=== PATIENT | male | born 1960 | race African-American/Black ===

== ENCOUNTER 2016-06-22 12:21 | Emergency (ER) | payer OTHER ==
[~2016-06-22] VITALS: Ht 182.9 cm; Wt 114.0 kg
[~2016-06-22 12:21] MED LIST: ASPI81TA82 PO; BENZ100 PO; LOSA50TA PO; LOVA10TA PO; METF-324 PO; METO25 PO; NOVONP2 SQ; ZITH250T PO
[2016-06-22 12:31] VITALS: BP 123/93; PULSE 78; RESP 18; TEMP 98; O2SAT 97
[2016-06-22] MEDS ORDERED: METF1000 PO (12:46)
[2016-06-22] MEDS ORDERED: LOVA40TA PO (12:46)
[2016-06-22] MEDS ORDERED: GABA300C5 PO (12:46)
[2016-06-22] MEDS ORDERED: AMLO10TA2 PO (12:46)
[2016-06-22] MEDS ORDERED: GLIM1TAB PO (12:46)
--- NOTE | 2016-06-22 13:08 | PD ---
HPI Chief Complaint: Anxiety Time Seen by Provider: 12:56 Travel History International Travel<30 days: No Contact w/Intl Traveler<30days: No Traveled to known affect area: No History of Present Illness HPI This patient has history of anxiety troubles. He was stressing out about his medications today and noticed some chest pain. His chest pain consists of a 2 second long sharp pinching sensation in the left lower chest. It resolves spontaneously with no alleviating factors and 2 seconds. It is not exertional. He is pain-free now. No presyncopal symptoms. Duration one day. symptoms severity is mild PFSH Past Medical History Anxiety: Yes Cardiac Catheterization: Yes Cardiovascular Problems: Yes High Cholesterol: Yes Chest Pain: Yes Coronary Artery Disease: Yes (HX OF ANGINA) Diabetes: Yes Patient Takes Glucophage: Yes Diminished Hearing: No Endocrine: Yes Hypertension: Yes Implanted Vascular Access Dvce: Yes Psychiatric: Yes Tetanus Vaccination: < 5 Years Influenza Vaccination: No Past Surgical History Body Medical Devices: WIRES TO BOTH KNEES Other Surgery: Yes Social History Alcohol Use: No Tobacco Use: No Substance Use: No Allergies-Medications (Allergen,Severity, Reaction): Coded Allergies: Iodine (Verified Allergy, Severe, Swelling, 06/22/16) Seafood (Verified Allergy, Severe, Swelling, 06/22/16) Reported Meds & Prescriptions Reported Meds & Active Scripts Active Reported Gabapentin 300 Mg Cap 300 Mg PO TID Amlodipine (Amlodipine Besylate) 10 Mg Tab 10 Mg PO DAILY Lovastatin 40 Mg Tab 40 Mg PO DAILY Glimepiride 1 Mg Tab 1 Mg PO DAILY Take with breakfast or first main meal Metformin (Metformin HCl) 1,000 Mg Tab 1,000 Mg PO BIDPC With meals Review of Systems General / Constitutional: No: Fever HENT: No: Headaches Cardiovascular: Positive: Chest Pain or Discomfort Psychiatric: Positive: Anxiety Physical Exam Narrative GENERAL: Well-nourished, well-developed patient in no apparent distress. SKIN: Warm and dry. HEAD: Atraumatic. Normocephalic. EYES: Pupils equal and round. No scleral icterus. No injection or drainage. ENT: No nasal bleeding or discharge. Mucous membranes pink and moist. NECK: Trachea midline. No JVD. CARDIOVASCULAR: Regular rate and rhythm. No murmur appreciated. RESPIRATORY: No accessory muscle use. Clear to auscultation. Breath sounds equal bilaterally. GASTROINTESTINAL: Abdomen soft, non-tender, nondistended. Hepatic and splenic margins not palpable. MUSCULOSKELETAL: No obvious deformities. No clubbing. No cyanosis. No edema. NEUROLOGICAL: Awake and alert. No obvious cranial nerve deficits. Motor grossly within normal limits. Normal speech. PSYCHIATRIC: Appropriate mood and affect; insight and judgment normal. Data Data Last Documented VS Vital Signs Date Time Temp Pulse Resp B/P Pulse Ox O2 Delivery O2 Flow Rate FiO2 06/22/16 12:46 78 18 06/22/16 12:31 98.0 123/93 97 Orders Electrocardiogram (06/22/16 ) [facility] Medical Decision Making Medical Screen Exam Complete: Yes Emergency Medical Condition: Yes Medical Record Reviewed: Yes Differential Diagnosis Differential diagnosis includes CT, angina, pericarditis, pleurisy, GERD, anxiety. Narrative Course I have reviewed the patient's electronic medical record. Extended cardiac monitoring reveals sinus rhythm without ectopy Patient's exam is normal and symptoms have resolved His chest pain is clearly noncardiac in origin and will not require further inpatient evaluation He has a 2 second long pinching sensation that resolves on its own. I reviewed his EKG which shows no ST elevation Diagnosis Primary Impression: Atypical chest pain Additional Impression: Anxiety Additional Instructions: The patient was advised to follow up with their physician and return if they worsen. Med/Other Pt SpecificInfo: Other Disposition: 01 DISCHARGE HOME Condition: Stable Jovanni Kay MD Jun 22, 2016 13:08
--- NOTE | 2016-06-23 15:20 | EKG ---
Date Performed: 06/22/2016 Time Performed: 13:13:48 PTAGE: 55 years EKG: Sinus rhythm with prolonged 1st degree heart block Left axis deviation Poor R wave progression - probable normal variant Inferior/lateral ST-T changes are nonspecific Largely unchanged from prior tracing Abnormal E CG PREVIOUS TRACING : 08/19/2014 10.28 DOCTOR: Ender Mejia Interpretating Date/Time 06/23/2016 15:19:40
== END 2016-06-22 13:41 | disposition home or self-care (01) ==
LOC: PHED 12:21
DX: R07.89 Other chest pain (principal); E78.00 Pure hypercholesterolemia, unspecified; I25.10 Atherosclerotic heart disease of native coronary artery without angina pectoris; E11.9 Type 2 diabetes mellitus without complications; I10 Essential (primary) hypertension; I44.0 Atrioventricular block, first degree
CPT/HCPCS: 93005

== ENCOUNTER 2016-08-01 09:10 | Emergency (ER) | payer OTHER ==
[~2016-08-01] VITALS: Ht 182.9 cm; Wt 116.0 kg
[~2016-08-01 09:10] MED LIST changes: +AMLO10TA2 PO; -ASPI81TA82 PO; -BENZ100 PO; +GABA300C5 PO; +GLIM1TAB PO; -LOSA50TA PO; -LOVA10TA PO; +LOVA40TA PO; -METF-324 PO; +METF1000 PO; -METO25 PO; -NOVONP2 SQ; -ZITH250T PO
[2016-08-01 09:13] VITALS: BP 137/82; PULSE 59; RESP 17; TEMP 98.4; O2SAT 99
[2016-08-01] MEDS ORDERED: LIDOCAINE 1%/EPINEPHrine 1:100,000 SOLN 20 ML VIAL INFIL ONE (09:30)
[2016-08-01] MEDS ORDERED: TETANUS/DIPHTHERIA TOXOID ADULT 0.5 ML VIAL IM ONE (09:30)
[2016-08-01] MEDS ORDERED: SODIUM CHLORIDE 0.9% FLUSH 5 ML FLUSH IVF PRN (09:30)
[2016-08-01] MEDS ORDERED: CLINDAMYCIN INJ 900 MG in SODIUM CHLORIDE 0.9% INJ 100 ML IV ONE (09:30)
--- NOTE | 2016-08-01 09:30 | PD ---
HPI . Plantar puncture wound Chief Complaint: Laceration/Skin Injury Time Seen by Provider: 09:20 Travel History International Travel<30 days: No Contact w/Intl Traveler<30days: No Traveled to known affect area: No History of Present Illness HPI Patient presents with a plantar puncture wound. He stepped on a edward nail through his sock 2 days ago. He comes in today complaining with continued pain. No fever. Unknown date of last tetanus. PFSH Past Medical History Anxiety: Yes Cardiac Catheterization: Yes Cardiovascular Problems: Yes High Cholesterol: Yes Chest Pain: Yes Coronary Artery Disease: Yes (HX OF ANGINA) Diabetes: Yes Diminished Hearing: No Endocrine: Yes Hypertension: Yes Implanted Vascular Access Dvce: Yes Psychiatric: Yes Past Surgical History Body Medical Devices: WIRES TO BOTH KNEES Other Surgery: Yes Social History Alcohol Use: No Tobacco Use: No Substance Use: No Allergies-Medications (Allergen,Severity, Reaction): Coded Allergies: Iodine (Verified Allergy, Severe, Swelling, 08/01/16) Seafood (Verified Allergy, Severe, Swelling, 08/01/16) Reported Meds & Prescriptions Reported Meds & Active Scripts Active Reported Losartan (Losartan Potassium) 100 Mg Tab 100 Mg PO DAILY Aspirin 325 Mg Tab 325 Mg PO DAILY Novolin N Inj (Insulin Human NPH) 1,000 Unit/10 Ml Vial 40 Units SQ BID Gabapentin 300 Mg Cap 300 Mg PO BID Amlodipine (Amlodipine Besylate) 10 Mg Tab 10 Mg PO DAILY Lovastatin 40 Mg Tab 40 Mg PO DAILY Metformin (Metformin HCl) 1,000 Mg Tab 1,000 Mg PO BIDPC With meals Review of Systems Except as stated in HPI: all other systems reviewed are Neg General / Constitutional: No: Fever, Chills Skin: Positive Change in Pigmentation, Positive Other (pain and swelling on the plantar aspect of the right foot) Physical Exam Narrative GENERAL: Awake and alert and in no acute distress. SKIN: Warm and dry. Redness and swelling on the plantar aspect of the right midfoot. Is tender. I don't see any lymphangitis. CARDIOVASCULAR: Regular rate and rhythm. RESPIRATORY: No accessory muscle use. MUSCULOSKELETAL: No obvious deformities. No edema. NEUROLOGICAL: Awake and alert. No obvious cranial nerve deficits. Motor grossly within normal limits. Normal speech. PSYCHIATRIC: Appropriate mood and affect; insight and judgment normal. Data Data Last Documented VS Vital Signs Date Time Temp Pulse Resp B/P Pulse Ox O2 Delivery O2 Flow Rate FiO2 08/01/16 09:42 59 16 08/01/16 09:13 98.4 137/82 99 Orders Tetanus/Diphtheria Tox Adult (Tetanus/Di (08/01/16 09:30) Lidocai-Epi 1%-1:100,000 Inj (Xylocaine- (08/01/16 09:30) Sodium Chloride 0.9% Flush (Ns Flush) (08/01/16 09:30) Clindamycin Inj (Cleocin Inj) (08/01/16 09:30) MDM Medical Decision Making Medical Screen Exam Complete: Yes Emergency Medical Condition: Yes Differential Diagnosis Differential diagnosis of plantar puncture wound includes but is not limited to simple puncture, retained foreign body, cellulitis, abscess, bony injury Narrative Course Patient presents with a plantar puncture wound. He now has evidence of cellulitis. Have suggested to the patient that I explore the area to rule out a retained foreign body. In the meantime, he will be given a tetanus shot and a dose of IV Cleocin. Procedures Procedure Narrative Foreign body removal from a plantar puncture wound: Patient is allergic to iodine so the area was prepped with rubbing alcohol. It was then anesthetized with 4 cc of 1% lidocaine with epi. The puncture wound was cored out using a #11 blade. There was some retained fiber in the wound which was removed. The wound was then covered with a Band-Aid. Diagnosis Primary Impression: Cellulitis Qualified Code: L03.115 - Cellulitis of right lower extremity Additional Impressions: Puncture wound of plantar aspect of foot Qualified Code: S91.331A - Puncture wound of plantar aspect of foot, right, initial encounter Foreign body (FB) in soft tissue Patient Instructions: Cellulitis (ED), General Instructions Additional Instructions: Clean the wound twice daily with soap and water. Apply a thin layer of Neosporin ointment after you wash it. See your doctor in 2 days for recheck. Seek care sooner for increasing redness , drainage, warmth, unusual pain. Med/Other Pt SpecificInfo: Prescription(s) given Scripts Hydrocodone-Acetaminophen (Staples)5-325 mg Tab1-2 Tab PO Q6H PRN (PAIN) #12 TAB Ref 0 Prov:Michell Galdamez MD 08/01/16 Clindamycin (Cleocin)300 Mg Vol001 Mg PO Q8H #30 CAP Ref 0 Prov:Michell Galdamez MD 08/01/16 Disposition: 01 DISCHARGE HOME Condition: Stable Michell Galdamez MD Aug 01, 2016 09:30
[2016-08-01] MEDS ORDERED: NOVONP2 SQ (09:50)
[2016-08-01] MEDS ORDERED: ASPI325T PO (09:52)
[2016-08-01] MEDS ORDERED: LOSA100T PO (09:52)
[2016-08-01] MEDS ORDERED: CLEO300C2 PO (10:19)
[2016-08-01] MEDS ORDERED: NORC5TAB PO (10:19)
[2016-08-01 11:30] VITALS: BP 148/57
== END 2016-08-01 11:43 | disposition home or self-care (01) ==
LOC: PHED 09:10
DX: S91.341A Puncture wound with foreign body, right foot, initial encounter (principal); E78.00 Pure hypercholesterolemia, unspecified; I25.10 Atherosclerotic heart disease of native coronary artery without angina pectoris; E11.9 Type 2 diabetes mellitus without complications; I10 Essential (primary) hypertension; L03.115 Cellulitis of right lower limb; Z23 Encounter for immunization; W45.0XXA Nail entering through skin, initial encounter; Y99.8 Other external cause status
CPT/HCPCS: 28190; 90471; 90714; 96365

== ENCOUNTER 2017-01-25 18:58 | Inpatient (IN) | payer OTHER, MEDICARE ==
[~2017-01-25] VITALS: Ht 182.9 cm; Wt 117.0 kg
[~2017-01-25 18:58] MED LIST changes: +ASPI325T PO; +CLEO300C2 PO; -GLIM1TAB PO; +LOSA100T PO; +NORC5TAB PO; +NOVONP2 SQ
[2017-01-25 19:00] VITALS: BP 201/90; PULSE 51; RESP 20; TEMP 98.1; O2SAT 99
[2017-01-25 19:34] VITALS: BP 150/77; PULSE 53; RESP 18; TEMP 98.1; O2SAT 99
[2017-01-25 19:42] VITALS: BP_SYST 150; BP_SYST 167; BP_DIAS 77; BP_DIAS 79
[2017-01-25 19:50] LABS: AUTOMATED NEUTROPHIL # 4.7 TH/MM3 (1.8-7.7); BASOPHIL # 0.4 TH/MM3 (0-0.2); BASOPHIL % 3.7 % (0.0-2.0); EOSINOPHIL # 0.4 TH/MM3 (0-0.4); EOSINOPHIL % 3.5 % (0.0-4.0); HEMATOCRIT 39.1 % (39.0-51.0); LYMPH % 38.3 % (9.0-44.0); MEAN CELL VOLUME 70.1 FL (80.0-100.0); MEAN CORPUSCULAR HEMOGLOBIN 22.5 PG (27.0-34.0); MEAN CORPUSCULAR HGB CONC 32.2 % (32.0-36.0); MONO % 7.5 % (0.0-8.0); PLATELET COUNT 266 TH/MM3 (150-450); RED BLOOD COUNT 5.58 MIL/MM3 (4.50-5.90); RED CELL DISTRIBUTION WIDTH 13.3 % (11.6-17.2); WHITE BLOOD COUNT 10.3 TH/MM3 (4.0-11.0)
[2017-01-25 19:57] LABS: CHLORIDE 103 MEQ/L (98-107); POTASSIUM 3.8 MEQ/L (3.5-5.1); SODIUM (NA) 137 MEQ/L (136-145)
--- NOTE | 2017-01-25 19:59 | PD ---
HPI Chief Complaint: Cardiac Complaint Time Seen by Provider: 19:16 Travel History International Travel<30 days: No Contact w/Intl Traveler<30days: No Traveled to known affect area: No History of Present Illness HPI The patient is a 56-year-old male that had an EKG today, done routinely for a checkup at his doctor's office. His doctor is Dr. Cloud. The EKG showed a complete heart block which she has not had before. It also showed a bradycardia with ventricular rate of 44. The patient denies any shortness of breath, chest pain, syncopal or near syncopal spells. He denies any hemoptysis. He denies any fever. 10 years ago a piece of metal hit him in the chest near her bowels and this was removed but apparently the patient has not had any heart problems since. He does have a history of diabetes and hypertension and hyperlipidemia. He does not smoke. He saw a analytics lead in [facility] 2 or 3 years ago but has not seen him since. He cannot remember this analytics lead name. PFSH Past Medical History Anxiety: Yes Cardiac Catheterization: Yes Cardiovascular Problems: Yes High Cholesterol: Yes Chest Pain: Yes Coronary Artery Disease: No (HX OF ANGINA) Diabetes: Yes Patient Takes Glucophage: Yes Diminished Hearing: No Endocrine: Yes Gastrointestinal Disorders: No Hypertension: Yes Implanted Vascular Access Dvce: Yes Psychiatric: Yes Tetanus Vaccination: Unknown Influenza Vaccination: No Past Surgical History Body Medical Devices: WIRES TO BOTH KNEES Other Surgery: Yes (RIGHT HAND 4TH DIGIT) Social History Alcohol Use: No Tobacco Use: No Substance Use: No Allergies-Medications (Allergen,Severity, Reaction): Coded Allergies: Fish Containing Products (Unverified Allergy, Severe, Swelling, 01/25/17) iodine (Unverified Allergy, Severe, Swelling, 01/25/17) potassium iodide (Unverified Allergy, Severe, Swelling, 01/25/17) povidone-iodine (Unverified Allergy, Severe, Swelling, 01/25/17) sodium iodide (Unverified Allergy, Severe, Swelling, 01/25/17) sodium iodide (Unverified Allergy, Severe, Swelling, 01/25/17) Reported Meds & Prescriptions Reported Meds & Active Scripts Active Reported Losartan (Losartan Potassium) 100 Mg Tab 100 Mg PO DAILY Aspirin 325 Mg Tab 325 Mg PO DAILY Novolin N Inj (Insulin Human NPH) 1,000 Unit/10 Ml Vial 40 Units SQ BID Gabapentin 300 Mg Cap 300 Mg PO BID Amlodipine (Amlodipine Besylate) 10 Mg Tab 10 Mg PO DAILY Lovastatin 40 Mg Tab 40 Mg PO DAILY Metformin (Metformin HCl) 1,000 Mg Tab 1,000 Mg PO BIDPC With meals Review of Systems Except as stated in HPI: all other systems reviewed are Neg Physical Exam Narrative GENERAL: The patient is obese, alert, oriented 3 in no apparent distress. His vital signs show blood pressure 201/90 with heart rate of 51 but are otherwise normal. He does not appear in any respiratory distress. SKIN: Focused skin assessment warm/dry. HEAD: Atraumatic. Normocephalic. EYES: Pupils equal and round. No scleral icterus. No injection or drainage. ENT: No nasal bleeding or discharge. Mucous membranes pink and moist. NECK: Trachea midline. No JVD. CARDIOVASCULAR: Regular rate and rhythm. No murmur appreciated. RESPIRATORY: No accessory muscle use. Clear to auscultation. Breath sounds equal bilaterally. GASTROINTESTINAL: Abdomen soft, non-tender, nondistended. Hepatic and splenic margins not palpable. MUSCULOSKELETAL: No obvious deformities. No clubbing. No cyanosis. No edema. NEUROLOGICAL: Awake and alert. No obvious cranial nerve deficits. Motor grossly within normal limits. Normal speech. PSYCHIATRIC: Appropriate mood and affect; insight and judgment normal. Data Data Last Documented VS Vital Signs Date Time Temp Pulse Resp B/P Pulse Ox O2 Delivery O2 Flow Rate FiO2 01/25/17 19:42 150/77 167/79 01/25/17 19:34 53 18 99 Room Air 01/25/17 19:34 98.1 Orders Electrocardiogram (01/25/17 19:30) Ckmb (Isoenzyme) Profile (01/25/17 19:30) Complete Blood Count With Diff (01/25/17 19:30) Comprehensive Metabolic Panel (01/25/17 19:30) Magnesium (Mg) (01/25/17 19:30) Prothrombin Time / Inr (Pt) (01/25/17 19:30) Act Partial Throm Time (Ptt) (01/25/17 19:30) Troponin I (01/25/17 19:30) Ecg Monitoring (01/25/17 19:30) Bilateral Bp Monitoring (01/25/17 19:30) Iv Access Insert/Monitor (01/25/17 19:30) Oximetry (01/25/17 19:30) Oxygen Administration (01/25/17 19:30) Sodium Chloride 0.9% Flush (Ns Flush) (01/25/17 19:30) Chest, Pa & Lat (01/25/17 19:30) Admit Order (Ed Use Only) (01/25/17 19:44) CKMB (01/25/17 19:25) CKMB% (01/25/17 19:25) Labs Laboratory Tests Test 01/25/17:25 White Blood Count 10.3 TH/MM3 Red Blood Count 5.58 MIL/MM3 Hemoglobin 12.6 GM/DL Hematocrit 39.1 % Mean Corpuscular Volume 70.1 FL Mean Corpuscular Hemoglobin 22.5 PG Mean Corpuscular Hemoglobin 32.2 % Concent Red Cell Distribution Width 13.3 % Platelet Count 266 TH/MM3 Mean Platelet Volume 9.1 FL Neutrophils (%) (Auto) 47.0 % Lymphocytes (%) (Auto) 38.3 % Monocytes (%) (Auto) 7.5 % Eosinophils (%) (Auto) 3.5 % Basophils (%) (Auto) 3.7 % Neutrophils # (Auto) 4.7 TH/MM3 Lymphocytes # (Auto) 4.0 TH/MM3 Monocytes # (Auto) 0.8 TH/MM3 Eosinophils # (Auto) 0.4 TH/MM3 Basophils # (Auto) 0.4 TH/MM3 CBC Comment AUTO DIFF Differential Comment AUTO DIFF CONFIRMED Prothrombin Time 10.4 SEC Prothromb Time International 0.9 RATIO Ratio Activated Partial 25.2 SEC Thromboplast Time Sodium Level 137 MEQ/L Potassium Level 3.8 MEQ/L Chloride Level 103 MEQ/L Carbon Dioxide Level 26.1 MEQ/L Anion Gap 8 MEQ/L Blood Urea Nitrogen 20 MG/DL Creatinine 1.10 MG/DL Estimat Glomerular Filtration 83 ML/MIN Rate Random Glucose 241 MG/DL Calcium Level 9.0 MG/DL Magnesium Level 1.4 MG/DL Total Bilirubin 0.2 MG/DL Aspartate Amino Transf 26 U/L (AST/SGOT) Alanine Aminotransferase 26 U/L (ALT/SGPT) Alkaline Phosphatase 93 U/L Total Creatine Kinase 198 U/L Creatine Kinase MB 1.2 NG/ML Troponin I 0.14 NG/ML Total Protein 7.8 GM/DL Albumin 3.7 GM/DL MDM Medical Decision Making Medical Screen Exam Complete: Yes Emergency Medical Condition: Yes Medical Record Reviewed: Yes Interpretation(s) EKG shows a heart block with a ventricular rate of 51. No acute ST elevation or depression is noted. The coagulation profile is normal. The complete metabolic profile shows a BUN of 20, glucose 241, magnesium 1.4 but is otherwise unremarkable. The CK-MB is normal but the troponin I is 0.14. The CBC is normal except for hemoglobin of 12.6. Differential Diagnosis Complete heart block, cardiac syncope, electrolyte disorder, acute coronary syndrome Narrative Course The patient appears totally asymptomatic with this complete heart block. Physician Communication Physician Communication I discussed the patient with Dr. Nate Rosado and he wants to admit the patient to the CVICU at [facility]. Diagnosis Primary Impression: Complete heart block by electrocardiogram Additional Impressions: Elevated troponin I level Blood glucose elevated Admitting Information Admitting Physician Requests: Admit Reji Britton MD Jan 25, 2017 19:58
[2017-01-25 20:00] LABS: ANION GAP 8 MEQ/L (5-15); BICARBONATE 26.1 MEQ/L (21.0-32.0); MAGNESIUM 1.4 MG/DL (1.5-2.5)
[2017-01-25 20:01] LABS: BLOOD UREA NITROGEN 20 MG/DL (7-18)
[2017-01-25 20:02] LABS: APTT (PATIENT) 25.2 SEC (24.3-30.1); INTERNATIONAL NORMALIZED RATIO 0.9 RATIO; PROTHROMBIN TIME - PATIENT 10.4 SEC (9.8-11.6)
[2017-01-25 20:03] LABS: ALT (GPT) 26 U/L (12-78)
[2017-01-25 20:04] LABS: AST (GOT) 26 U/L (15-37); GLOMERULAR FILTRATION RATE 83 ML/MIN (>89)
[2017-01-25 20:05] LABS: HEMO FLAGS AUTO DIFF; TOTAL BILIRUBIN ADULT 0.2 MG/DL (0.2-1.0)
[2017-01-25 20:06] LABS: ALKALINE PHOSPHATASE 93 U/L (45-117); CREATINE KINASE 198 U/L (39-308)
--- NOTE | 2017-01-25 20:08 | RADRPT ---
EXAM DATE/TIME: 01/25/2017 19:42 [facility] COMPARISON: No previous studies available for comparison. INDICATIONS : Palpitations. MEDICAL HISTORY : Hypertension. Diabetes SURGICAL HISTORY : None. ENCOUNTER: Initial ACUITY: 1 day PAIN SCORE: 0/10 LOCATION: Bilateral chest FINDINGS: PA and lateral views of the chest demonstrate the lungs to be symmetrically aerated without evidence of mass, infiltrate or effusion. The cardiomediastinal contours are unremarkable. Osseous structure s are intact. CONCLUSION: No evidence of acute cardiopulmonary disease. Yoan Lindquist MD on January 25, 2017 at 20:06 Board Certified Radiologist. This report was verified electronically.
[2017-01-25 20:19] LABS: CKMB 1.2 NG/ML (0.5-3.6)
[2017-01-25 20:25] LABS: SCAN/DIFF AUTO DIFF CONFIRMED
[2017-01-25 20:29] VITALS: BP 159/81; PULSE 55; RESP 18; O2SAT 98
[2017-01-25 21:30] VITALS: BP 161/76; PULSE 51; RESP 18; O2SAT 97
[2017-01-25 22:35] VITALS: BP 167/74; PULSE 54; RESP 18; O2SAT 98
[2017-01-26] VITALS (17 sets, daily range): BP systolic 135–181; BP diastolic 76–96; PULSE 37–83; RESP 1–22; TEMP 98–98.8; O2SAT 95–98
[2017-01-26] MEDS ORDERED: ATROPINE SULFATE 1 MG/10 ML SYRINGE ONE (01:17)
[2017-01-26] MEDS ORDERED: CHLORHEXIDINE GLUCONATE 2 % 1 PACK (2 CLOTHS) TOP PRN (01:45)
[2017-01-26] MEDS ORDERED: ACETAMINOPHEN 325 MG TAB PO PRN (01:45)
[2017-01-26] MEDS ORDERED: hydrALAZINE HCL 20 MG/ML VIAL IV PUSH PRN (01:45)
[2017-01-26] MEDS ORDERED: DEXTROSE 50% IN WATER 50 ML VIAL(D50) IV PRN (01:45)
[2017-01-26] MEDS ORDERED: TEMAZEPAM 15 MG CAP PO PRN (01:45)
[2017-01-26] MEDS ORDERED: GLUCAGON 1 MG/ML VIAL OTHER PRN (01:45)
[2017-01-26] MEDS ORDERED: MISCELLANEOUS NURSING INFORMATION XX SCH (01:45)
[2017-01-26] MEDS ORDERED: ENOXAPARIN SODIUM 120 MG/0.8 ML SYRINGE SQ SCH (02:00)
[2017-01-26] MEDS ORDERED: ENALAPRILAT 1.25 MG/ML VIAL IV PUSH PRN (02:00)
--- NOTE | 2017-01-26 02:08 | HHI.HP ---
HPI Service Critical Care Medicine Primary Care Physician Non-Staff Admission Diagnosis Comlete heart block Diagnosis: Chief Complaint: None. Sent from PCP office for new heart block. Travel History International Travel<30 Days: No Contact w/Intl Traveler <30 Da: No Traveled to Known Affected Are: No History of Present Illness 56 y/o man observed to have complete heart block on ECG today in private physicians office. Sent to [place] ED and transferred to [facility] CVICU where I met him on his arrival. No chest pain, SOB, syncope, light-headedness. Electrolytes acceptable range. Mag 1.4. K 3.8. Trop 0.14. ECG with variable ventricular response in the 40s. SBP 160s. Dr. Rosado has reviewed and discussed with me plan of care. No specific possible causative medications. Patient has IDDM, hypertension, anxiety. Past Family Social History Allergies: Coded Allergies: Fish Containing Products (Unverified Allergy, Severe, Swelling, 01/25/17) iodine (Unverified Allergy, Severe, Swelling, 01/25/17) potassium iodide (Unverified Allergy, Severe, Swelling, 01/25/17) povidone-iodine (Unverified Allergy, Severe, Swelling, 01/25/17) sodium iodide (Unverified Allergy, Severe, Swelling, 01/25/17) sodium iodide (Unverified Allergy, Severe, Swelling, 01/25/17) Physical Exam Vital Signs Vital Signs Date Time Temp Pulse Resp B/P Pulse Ox O2 Delivery O2 Flow Rate FiO2 01/26/17 00:23 53 18 97 01/26/17 00:22 52 18 158/78 97 Room Air 01/25/17 22:35 54 18 167/74 98 Room Air 01/25/17 21:30 51 18 161/76 97 Room Air 01/25/17 20:29 55 18 159/81 98 Room Air 01/25/17 19:42 150/77 167/79 01/25/17 19:34 53 18 99 Room Air 01/25/17 19:34 99 Room Air 01/25/17 19:34 98.1 53 18 150/77 99 Room Air 01/25/17 19:34 99 Room Air 01/25/17 19:00 98.1 51 20 201/90 99 Physical Exam Gen: Alert, comfortable. Head: Normal. Neck: Supple, airway clear. Lungs: Clear, no adventitious sounds. Comfortable pattern. Heart: Irreg, Irreg, bradycardia 45 - 54. No M,r. No JVD. Abdomen: Benign, soft. Extremities: Warm, well perfused. Neuro: O X 3, alert, conversant. Moves 4 limbs. Laboratory Laboratory Tests Test 01/25/17 19:25 White Blood Count 10.3 Red Blood Count 5.58 Hemoglobin 12.6 Hematocrit 39.1 Mean Corpuscular Volume 70.1 Mean Corpuscular Hemoglobin 22.5 Mean Corpuscular Hemoglobin 32.2 Concent Red Cell Distribution Width 13.3 Platelet Count 266 Mean Platelet Volume 9.1 Neutrophils (%) (Auto) 47.0 Lymphocytes (%) (Auto) 38.3 Monocytes (%) (Auto) 7.5 Eosinophils (%) (Auto) 3.5 Basophils (%) (Auto) 3.7 Neutrophils # (Auto) 4.7 Lymphocytes # (Auto) 4.0 Monocytes # (Auto) 0.8 Eosinophils # (Auto) 0.4 Basophils # (Auto) 0.4 CBC Comment AUTO DIFF Differential Comment AUTO DIFF CONFIRMED Prothrombin Time 10.4 Prothromb Time International 0.9 Ratio Activated Partial 25.2 Thromboplast Time Sodium Level 137 Potassium Level 3.8 Chloride Level 103 Carbon Dioxide Level 26.1 Anion Gap 8 Blood Urea Nitrogen 20 Creatinine 1.10 Estimat Glomerular Filtration 83 Rate Random Glucose 241 Calcium Level 9.0 Magnesium Level 1.4 Total Bilirubin 0.2 Aspartate Amino Transf 26 (AST/SGOT) Alanine Aminotransferase 26 (ALT/SGPT) Alkaline Phosphatase 93 Total Creatine Kinase 198 Creatine Kinase MB 1.2 Troponin I 0.14 Total Protein 7.8 Albumin 3.7 Result Diagram: 01/25/17192401/25/171924 Imaging CXR: Clear Assessment and Plan Assessment and Plan Assessment: 1. Complete Heart Block, periodic atrial fibrillation with bradycardic response. 2. Hypertension. 3. DM, Type 2, poorly controlled (missed afternoon insulin today). 4. Hyperlipidemia. Plan: 1. Telemetry. 2. Bed rest, up with assistance. 3. Full anticoagulation. 4. Repeat Troponin. 5. Pepcid. 6. Q4h SSI until better glucose control. Hold NPH in case made NPO for possible procedure. 7. Atropine for sustained rate < 38. 8. Hydralazine for hypertension now. 9. Hold ARB. 10. No AV node conduction blockers for HTN. Overall impression: Warm and well perfused. Patient states he has a pulse in the 40s most of the time for many months, possibly years. I'll start full anticoagulation due to inconsistent upper chamber contraction. Adjust type per Cardiology Service. I talked with his at the bedside and explained our plans. Dr. Rosado will see in the morning. Randall Quintanilla MD Jan 26, 2017 02:08
[2017-01-26] MEDS ORDERED: ATROPINE SULFATE 1 MG/10 ML SYRINGE IV PUSH PRN (02:15)
[2017-01-26] MEDS ORDERED: amLODIPine BESYLATE 5 MG TAB PO ONE (02:15)
[2017-01-26] MEDS: metFORMIN HCL 500 MG TAB PO SCH ×3 (02:18→18:19)
[2017-01-26] MEDS: INSULIN ASPART SUPPLEMENTAL SCALE SQ SCH ×6 (02:19→21:43)
[2017-01-26] MEDS: CHLORHEXIDINE GLUCONATE 2 % 1 PACK (2 CLOTHS) TOP SCH (04:00)
[2017-01-26] MEDS: MAGNESIUM SULFATE 1 GM PREMIX 100 ML IV SCH ×2 (07:53→08:08)
[2017-01-26] MEDS: PRAVASTATIN SOD 40 MG TAB PO SCH (08:06)
[2017-01-26] MEDS: SODIUM CHLORIDE 0.9% FLUSH 10 ML FLUSH IVF PRN (08:06)
[2017-01-26] MEDS: FAMOTIDINE 20 MG TAB PO SCH ×2 (08:07→21:40)
[2017-01-26] MEDS: GABAPENTIN 300 MG CAP PO SCH ×2 (08:07→21:40)
[2017-01-26] MEDS: ASPIRIN 81 MG CHEW TAB CHEW SCH (08:08)
--- NOTE | 2017-01-26 14:45 | MB ---
cc: NATE CISNEROS DO DATE OF CONSULTATION January 26, 2017 REASON FOR CONSULTATION High degree AV block. HISTORY OF PRESENT ILLNESS Liam Hurtado is a pleasant 56-year-old male who presented to [facility] Emergency Room in [facility] at the request of his primary care physician due to concern for complete heart block. He was seeing his primary care physician yesterday and while in the office had an EKG done. He was called later in the day by his primary care physician while he was in the grocery store and told him that he should get to the emergency room immediately. On arrival to the emergency room an electrocardiogram was done which appears to be probable high degree AV block. At that time he was transferred to [facility] for further observation and decision on what should be done. In speaking to him he is currently hemodynamically stable without chest pain, shortness of breath or palpitations. He states that he has had a low heart rate for sometime but never known to have AV block. Of note, he had a Holter monitor on August 19, 2014 and it was noted that he had first degree AV block with occasional second-degree probable type 2 AV block. PAST MEDICAL HISTORY 1. Anxiety. 2. Hyperlipidemia. 3. Diabetes. 4. Hypertension. PAST SURGICAL HISTORY 1. Cardiac catheterization (February 15, 2006) left main normal, LAD has mild luminal irregularities. Left circumflex small vessel with mild luminal irregularities. RCA medium size vessel with mild luminal irregularities. 2. Bilateral reconstructive knee surgery. 3. States that he had surgery for removal of shrapnel removed from his chest but unable to further describe exactly what this was. ALLERGIES 1. IODINE. 2. POTASSIUM IODIDE. MEDICATIONS 1. Losartan 100 milligrams daily. 2. Gabapentin 300 milligrams b.i.d. 3. Metformin 1000 milligrams b.i.d. 4. Norvasc 10 milligrams daily. 5. Lovastatin 40 milligrams daily. 6. Novolin 40 units subcu b.i.d. 7. Aspirin 325 milligrams daily. FAMILY HISTORY Denies premature coronary artery disease or sudden cardiac within the family. SOCIAL HISTORY Denies alcohol, tobacco or drug abuse. REVIEW OF SYSTEMS 14-systems were reviewed including osteopathic. Pertinent positives and negatives above, otherwise negative. PHYSICAL EXAMINATION VITAL SIGNS: Temperature 98.2, heart rate 50, blood pressure 153/84, respirations 16, pulse ox 95% on room air. GENERAL: In general the patient appears well in no acute distress, alert awake and oriented x3. HEENT: Extraocular muscles intact. Mucous membranes moist. NECK: Supple. No JVD at 45 degrees. No carotid bruits heard bilaterally. Carotid upstroke is brisk in nature. HEART: Heart is bradycardic but regular. Positive first and second heart sounds with no noted murmurs, gallops or rubs. LUNGS: Clear to auscultation bilaterally. No wheezes, rales or rhonchi. ABDOMEN: Soft, nontender, nondistended. No organomegaly noted. EXTREMITIES: Show no clubbing, cyanosis or edema. Femoral and distal pulses intact bilaterally. NEUROLOGICALLY: No focal deficits. OSTEOPATHIC. No kyphoscoliosis, lordosis or paraspinal tender points. LABORATORY DATA Hemoglobin 12.6, hematocrit 39.1, platelets 266. Potassium 3.8, BUN 20, creatinine 1.1, magnesium 1.4, troponin 0.14. CARDIOLOGY STUDIES Electrocardiogram (January 26, 2017 at 05:42) AV dissociation most likely complete heart block or at least high degree heart block. ST-T wave changes inferolaterally possibly due to ischemia. IMPRESSION 1. AV dissociation most likely complete heart block versus high degree AV block for which the patient is currently asymptomatic. 2. History of first degree AV block with possible second-degree type 2 AV block. 3. Hypertension. 4. Diabetes mellitus. 5. History of cardiac catheterization (February 15, 2006) with minimal coronary artery disease. 6. Mildly elevated troponin. 7. Hypomagnesemia. RECOMMENDATIONS 1. Mr. Hurtado appears to have had at least high degree AV block if not complete heart block but is currently hemodynamically stable without symptoms. He will be watched in the CVICU from that standpoint. Overnight he has been mostly sinus rhythm with occasional episodes of dropped beats. 2. Because of the mildly elevated troponin as well as some EKG changes I feel that it is reasonable that he undergo cardiac catheterization to rule out significant coronary artery disease as a possible cause for his AV heart block. 3. Postprocedure he will meet with EP cardiology for further considerations of pacemaker therapy. At this time him and his are somewhat hesitant about the pacemaker unless it is absolutely necessary which I did describe to him that most likely it would be. 4. We will change of Lovenox to heparin in anticipation of his cardiac catheterization on Saturday. 5. Will check a 2-D echo to look at his overall left ventricular function, cardiac structure and possible valvulopathies. 6. Further recommendations will be made based on the hospital course. Thank you for allowing me to see Liam Hurtado. If there are any questions please do not hesitate to call. Nate Cisneros DO VGP/EO /1:38 PM /2:28 PM
--- NOTE | 2017-01-26 15:12 | EKG ---
Date Performed: 01/25/2017 Time Performed: 19:10:27 PTAGE: 56 years EKG: SINUS BRADYCARDIA WITH FIRST-DEGREE AV BLOCK WITH HI INTERVAL OF .34. NONSPECIFIC T-WAVE CH CARLOS BORDERLINE LEFT AXIS DEVIATION Since previous tracing, no significant change noted ABNORMAL RHYT ECG PREVIOUS TRACING : 06/22/2016 13.13 DOCTOR: Catracho Oconnor Interpretating Date/Time 01/26/2017 15:10:54
--- NOTE | 2017-01-26 15:19 | EKG ---
Date Performed: 01/26/2017 Time Performed: 05:42:18 PTAGE: 56 years EKG: There is a Sinus rhythm that is irregular with some AV conduction with a prolonged VA interval and at other times there is n o AV conduction with a probable junctional escape rhythm. Rate is variable, averaging 42. There is no evidence that this is AV Wenkebach. VA interval of that conducts appears to be at .40-.44. Nonspecif ic T-wave changes [place] borderline leftward Compared to previous tracing, there is now variable sinus rhythm with some conducted beats, and some what appears to be escape junctional beats at a slower rat e. This represents fairly advanced AV block. Clinical correlation recommended. Abnormal ECG PREVIOUS TRACING : 01/25/2017 19.10 DOCTOR: Catracho Oconnor Interpretating Date/Time 01/26/2017 15:18:43
[2017-01-26 15:45] LABS: HEMATOCRIT 36.3 % (39.0-51.0); MEAN CELL VOLUME 70.5 FL (80.0-100.0); MEAN CORPUSCULAR HEMOGLOBIN 22.6 PG (27.0-34.0); PLATELET COUNT 239 TH/MM3 (150-450); RED BLOOD COUNT 5.14 MIL/MM3 (4.50-5.90); RED CELL DISTRIBUTION WIDTH 14.3 % (11.6-17.2); REVIEW FLAG FINAL; WHITE BLOOD COUNT 8.2 TH/MM3 (4.0-11.0)
[2017-01-26 15:54] LABS: APTT (PATIENT) 27.3 SEC (24.3-30.1); PROTHROMBIN TIME - PATIENT 10.9 SEC (9.8-11.6)
[2017-01-26] MEDS: HEPARIN-D5W 25,000 U/250 ML 250 ML IV SCH (15:57)
[2017-01-26 15:59] LABS: BICARBONATE 26.9 MEQ/L (21.0-32.0); MAGNESIUM 1.8 MG/DL (1.5-2.5); POTASSIUM 3.9 MEQ/L (3.5-5.1)
[2017-01-26] MEDS ORDERED: HEPARIN SODIUM - IV 10,000 UNITS/10 ML VIAL IV PRN ×2 (20:00)
[2017-01-26 22:45] LABS: APTT (PATIENT) 28.7 SEC (24.3-30.1)
[2017-01-27] VITALS (7 sets, daily range): BP systolic 145–159; BP diastolic 72–98; PULSE 38–82; RESP 14–22; TEMP 98.2–98.4; O2SAT 95–98
[2017-01-27] MEDS: INSULIN ASPART SUPPLEMENTAL SCALE SQ SCH ×6 (01:45→21:45)
[2017-01-27 02:54] LABS: HEMATOCRIT 37.3 % (39.0-51.0); MEAN CELL VOLUME 69.8 FL (80.0-100.0); MEAN CORPUSCULAR HEMOGLOBIN 22.4 PG (27.0-34.0); PLATELET COUNT 232 TH/MM3 (150-450); RED BLOOD COUNT 5.34 MIL/MM3 (4.50-5.90); RED CELL DISTRIBUTION WIDTH 14.1 % (11.6-17.2); REVIEW FLAG FINAL; WHITE BLOOD COUNT 9.9 TH/MM3 (4.0-11.0)
[2017-01-27 03:03] LABS: BICARBONATE 26.2 MEQ/L (21.0-32.0); MAGNESIUM 1.6 MG/DL (1.5-2.5); POTASSIUM 3.6 MEQ/L (3.5-5.1)
[2017-01-27 03:13] LABS: APTT (PATIENT) 39.7 SEC (24.3-30.1)
[2017-01-27] MEDS: CHLORHEXIDINE GLUCONATE 2 % 1 PACK (2 CLOTHS) TOP SCH (04:00)
--- NOTE | 2017-01-27 06:18 | HHI.CCPN ---
Subjective Remarks/Hospital Course 56 y/o man observed to have complete heart block on ECG today in private physicians office. Sent to [place] [facility] and [place] [facility] where I met him on his arrival. No chest pain, SOB, syncope, light-headedness. Electrolytes acceptable range. Mag 1.4. K 3.8. Trop 0.14. ECG with variable ventricular response in the 40s. SBP 160s. Dr. Rosado has reviewed and discussed with me plan of care. No specific possible causative medications. Patient has IDDM, hypertension, anxiety. Objective Vital Signs Date Time Temp Pulse Resp B/P Pulse Ox O2 Delivery O2 Flow Rate FiO2 01/27/17 03:00 98.4 82 18 145/82 95 01/26/17 21:05 21 01/26/17 00:22 Room Air Intake and Output 01/26/17 01/26/17 01/27/17 08:00 16:00 00:00 Intake Total 480 ml 1020 ml Output Total 600 ml 580 ml Balance -120 ml 440 ml Result Diagram: 01/27/1721001/27/17210 Imaging CXR: Clear Objective Remarks Gen: Alert, comfortable. Head: Normal. Neck: Supple, airway clear. Lungs: Clear, no adventitious sounds. Comfortable pattern. Heart: Irreg, Irreg, bradycardia 45 - 54. No M,r. No JVD. Abdomen: Benign, soft. Extremities: Warm, well perfused. Neuro: O X 3, alert, conversant. Moves 4 limbs. A/P Assessment and Plan Assessment: 1. Complete Heart Block, periodic atrial fibrillation with bradycardic response. 2. Hypertension. 3. DM, Type 2, poorly controlled (missed afternoon insulin today). 4. Hyperlipidemia. Plan: 1. Telemetry. 2. Bed rest, up with assistance. 3. Full anticoagulation. 4. Repeat Troponin. 5. Pepcid. 6. Q4h SSI until better glucose control. Hold NPH in case made NPO for possible procedure. 7. Atropine for sustained rate < 38. 8. Hydralazine for hypertension now. 9. Hold ARB. 10. No AV node conduction blockers for HTN. Overall impression: Warm and well perfused. Patient states he has a pulse in the 40s most of the time for many months, possibly years. I'll start full anticoagulation due to inconsistent upper chamber contraction. Adjust type per Cardiology Service. I talked with his at the bedside and explained our plans. Dr. Rosado will see in the morning. Ashley Pimentel MD Jan 27, 2017 06:18
--- NOTE | 2017-01-27 07:41 | HHI.CCPN ---
Subjective Remarks/Hospital Course 56 y/o man observed to have complete heart block on ECG today in private physicians office. Sent to [place] ED and transferred [place] [facility] where I met him on his arrival. No chest pain, SOB, syncope, light-headedness. Electrolytes acceptable range. Mag 1.4. K 3.8. Trop 0.14. ECG with variable ventricular response in the 40s. SBP 160s. Dr. Rosado has reviewed and discussed with me plan of care. No specific possible causative medications. Patient has IDDM, hypertension, anxiety. Subjective: 01/27: Afebrile. Patient up most of the night patient anxious regarding impending procedure cardiac catheter and pacemaker that he related to me. The patient is tolerating a diet. Heart rate ranges throughout the last 24 hours 41 82. The patient was noted to have a magnesium level I.6 which will be replaced today. Plan for cardiac catheterization and possible pacemaker implantation tomorrow. Objective Vital Signs Date Time Temp Pulse Resp B/P Pulse Ox O2 Delivery O2 Flow Rate FiO2 01/27/17 03:00 98.4 82 18 145/82 95 01/26/17 21:05 21 01/26/17 00:22 Room Air Intake and Output 01/26/17 01/26/17 01/26/17 07:59 15:59 23:59 Intake Total 480 ml 1020 ml Output Total 600 ml 580 ml Balance -120 ml 440 ml Result Diagram: 01/27/1721001/27/17210 Imaging Last Impressions Chest X-Ray 01/25/17 1930 Signed Impressions: Service Date/Time: Wednesday, January 25, 2017 19:42 - CONCLUSION: No evidence of acute cardiopulmonary disease. Yoan Lindquist MD CXR: Clear Objective Remarks Gen: Alert, comfortable. Head: Normal. Neck: Supple, airway clear. Lungs: Clear, no adventitious sounds. Comfortable pattern. Heart: Irreg, Irreg, bradycardia 45 - 67. No murmurs rubs or gallops No JVD. Abdomen: Benign, soft. Normoactive bowel sounds Extremities: Warm, well perfused. No edema no cyanosis Neuro: O X 3, alert, conversant. Follows commands, moves extremities 4. A/P Assessment and Plan Assessment: 1. Complete Heart Block, periodic atrial fibrillation with bradycardic response. 2. Hypertension. 3. DM, Type 2, poorly controlled (missed afternoon insulin today). 4. Hyperlipidemia. Plan: 1. Telemetry. 2. Bed rest, up with assistance. 3. Full anticoagulation. 4. Repeat Troponin. 5. Pepcid. 6. Q4h SSI until better glucose control. Hold NPH in case made NPO for possible procedure. 7. Atropine for sustained rate < 38. 8. Hydralazine for hypertension 9. Hold ARB. 10. No AV node conduction blockers for HTN. 11. Heparin infusion 1200 units currently-management per cardiology Dispo. Level 3 Overall impression: Warm and well perfused. Patient states he has a pulse in the 40s most of the time for many months, possibly years. I'll start full anticoagulation due to inconsistent upper chamber contraction. Plan for cardiac catheterization in the morning all questions answered. Physician Ashley Eid MD Jan 27, 2017 07:41
[2017-01-27] MEDS ORDERED: POTASSIUM PHOSPHATE MONOBASIC 500 MG TAB PO/TUBE PRN (07:45)
[2017-01-27] MEDS ORDERED: SODIUM PHOSPHATE INJ 30 MMOL in SODIUM CHLOR 0.9% 250 ML INJ 240 ML IV PRN (07:45)
[2017-01-27] MEDS ORDERED: MAGNESIUM SULFATE INJ 4 GM in SODIUM CHLORIDE 0.9% INJ 92 ML IV PRN (07:45)
[2017-01-27] MEDS ORDERED: POTASSIUM CHLOR 20 MEQ PREMIX 100 ML IV PRN ×2 (07:45)
[2017-01-27] MEDS ORDERED: POTASSIUM CHLORIDE 25 MEQ EFFERVESCENT TAB PO PRN (07:45)
[2017-01-27] MEDS ORDERED: MAGNESIUM SULFATE INJ 2 GM in SODIUM CHLORIDE 0.9% INJ 96 ML IV PRN (07:45)
[2017-01-27] MEDS ORDERED: MAGNESIUM OXIDE 400 MG TAB PO PRN (07:45)
[2017-01-27] MEDS ORDERED: POTASSIUM PHOSPHATE MONOBASIC 500 MG TAB PO PRN (07:45)
[2017-01-27] MEDS ORDERED: POTASSIUM PHOSPHATE INJ 30 MMOL in SODIUM CHLOR 0.9% 250 ML INJ 250 ML IV PRN (07:45)
[2017-01-27] MEDS ORDERED: POTASSIUM CHLOR 40 MEQ PREMIX 100 ML IV PRN ×2 (07:45)
[2017-01-27] MEDS: PRAVASTATIN SOD 40 MG TAB PO SCH (09:00)
[2017-01-27] MEDS: ASPIRIN 81 MG CHEW TAB CHEW SCH (09:00)
[2017-01-27] MEDS: GABAPENTIN 300 MG CAP PO SCH ×2 (09:00→21:52)
[2017-01-27] MEDS: FAMOTIDINE 20 MG TAB PO SCH ×2 (09:00→21:52)
[2017-01-27 12:13] LABS: APTT (PATIENT) 38.3 SEC (24.3-30.1)
--- NOTE | 2017-01-27 14:15 | ECHRPT ---
Indication: COMPLETE HEART BLOCK CONCLUSIONS The left ventricular systolic function is normal with an estimated ejection fraction in the range of 60-65%. Moderate concentric left ventricular hypertrophy. No regional wall motion abnormalities are present. There is mild to moderate tricuspid valve regurgitation. The estimated pulmonary arterial pressure is 52 mmHg. There is estimated moderate pulmonary hypertension present (range 50-60 mmHg). BP: / HR: Rhythm: Other MEASUREMENTS (Male / Female) Normal Values Technical Quality:Technically difficult study 2D ECHO LV Diastolic Diameter PLAX 4.9 cm 4.2 - 5.9 / 3.9 - 5.3 cm LV Systolic Diameter PLAX 3.2 cm IVS Diastolic Thickness 1.6 cm 0.6 - 1.0 / 0.6 - 0.9 cm LVPW Diastolic Thickness 1.6 cm 0.6 - 1.0 / 0.6 - 0.9 cm LV Relative Wall Thickness 0.6 RV Internal Dim ED PLAX 2.2 cm LVOT Diameter 1.9 cm LA Systolic Diameter LX 4.0 cm 3.0 - 4.0 / 2.7 - 3.8 cm M-MODE Aortic Root Diameter MM 3.3 cm AV Cusp Separation MM 2.4 cm DOPPLER AV Peak Velocity 136.0 cm/s AV Peak Gradient 7.4 mmHg LVOT Peak Velocity 95.8 cm/s LVOT Peak Gradient 3.7 mmHg AV Area Cont Eq pk 2.0 cm MV Area PHT 3.9 cm Mitral E Point Velocity 86.4 cm/s Mitral A Point Velocity 93.3 cm/s Mitral E to A Ratio 0.9 TR Peak Velocity 294.5 cm/s TR Peak Gradient 34.7 mmHg PV Peak Velocity 113.0 cm/s PV Peak Gradient 5.1 mmHg FINDINGS LEFT VENTRICLE The left ventricular systolic function is normal with an estimated ejection fraction in the range of 60-65%. Moderate concentric left ventricular hypertrophy. No regional wall motion abnormalities are present. RIGHT VENTRICLE Normal right ventricular size and systolic function. LEFT ATRIUM The left atrial size is normal. RIGHT ATRIUM The right atrial size is normal. ATRIAL SEPTUM Normal atrial septal thickness without atrial level shunting by limited color doppler interrogation. AORTA The aortic root and proximal ascending aorta are normal in size on limited imaging. MITRAL VALVE Structurally normal mitral valve. No mitral valve stenosis or regurgitation. AORTIC VALVE Trileaflet aortic valve. No aortic valve stenosis or regurgitation. TRICUSPID VALVE There is estimated moderate pulmonary hypertension present (range 50-60 mmHg). There is mild to moderate tricuspid valve regurgitation. The estimated pulmonary arterial pressure is 52 mmHg. PULMONARY VALVE The pulmonary valve is not well visualized. VESSELS The inferior vena cava is normal in size. PERICARDIUM No pericardial effusion. Jonh Martins MD (Electronically Signed) Final Date:27 January 2017 14:15
--- NOTE | 2017-01-27 14:30 | PD.CARD.PN ---
Subjective Subjective Remarks Patient seen this morning No complaints Telemetry showing sinus rhythm with occasional av dissociation Objective Medications Current Medications Medications (Trade) Dose Ordered Sig/Juju Route Start Time Stop Time Status Last Admin (NS Flush) 2 ml UNSCH PRN IVF 01/25/17 19:30 01/26/17 08:06 (Tylenol) 650 mg Q6H PRN PO 01/26/17 01:45 (Pepcid) 20 mg Q12HR PO 01/26/17 09:00 01/26/17 21:40 (Restoril) 15 mg HS PRN PO 01/26/17 01:45 Miscellaneous Information 1 Q361D XX 01/26/17 01:45 01/26/17 01:45 (Chlorhexidine 2% Cloth) 3 pack Taper DAILY@04 TOP 01/26/17 04:00 01/22/18 03:59 01/27/17 04:00 (Chlorhexidine 2% Cloth) 3 pack UNSCH PRN TOP 01/26/17 01:45 (D50w (Vial) Inj) 50 ml UNSCH PRN IV 01/26/17 01:45 (Glucagon Inj) 1 mg UNSCH PRN OTHER 01/26/17 01:45 (NovoLOG SUPPLEMENTAL SCALE) 1 Q4H SQ 01/26/17 01:45 01/26/17 21:43 (Apresoline Inj) 20 mg Q2H PRN IV PUSH 01/26/17 01:45 (Aspirin Chew) 81 mg DAILY CHEW 01/26/17 09:00 01/26/17 08:08 (Vasotec Inj) 2.5 mg Q6H PRN IV PUSH 01/26/17 02:00 (Atropine Inj) 1 mg UNSCH PRN IV PUSH 01/26/17 02:15 (Neurontin) 300 mg BID PO 01/26/17 09:00 01/26/17 21:40 (Pravachol) 40 mg DAILY PO 01/26/17 09:00 01/26/17 08:06 (Glucophage) 1,000 mg BIDPC PO 01/26/17 02:15 01/26/17 18:19 (Heparin Inj) 5,000 units UNSCH PRN IV 01/26/17 20:00 (Heparin Inj) 2,500 units UNSCH PRN IV 01/26/17 20:00 Heparin Sodium/ Dextrose 250 ml @ 0 mls/hr TITRATE IV 01/26/17 14:00 01/26/17 15:57 Potassium Chloride 100 ml @ 50 mls/hr Q2H PRN IV 01/27/17 07:45 Potassium Chloride 100 ml @ 50 mls/hr Q2H PRN IV 01/27/17 07:45 (K-Lyte Cl Eff) 50 meq UNSCH PRN PO 01/27/17 07:45 Potassium Chloride 100 ml @ 25 mls/hr UNSCH PRN IV 01/27/17 07:45 Potassium Chloride 100 ml @ 50 mls/hr Q2H PRN IV 01/27/17 07:45 Magnesium Sulfate 4 gm/Sodium Chloride 100 ml @ 50 mls/hr UNSCH PRN IV 01/27/17 07:45 (Mag-Ox) 800 mg UNSCH PRN PO 01/27/17 07:45 Magnesium Sulfate 2 gm/Sodium Chloride 100 ml @ 50 mls/hr UNSCH PRN IV 01/27/17 07:45 (K-Phos) 2,000 mg Q4H PRN PO 01/27/17 07:45 Sodium Phosphate 30 mmol/Sodium Chloride 250 ml @ 42 mls/hr UNSCH PRN IV 01/27/17 07:45 (K-Phos) 2,000 mg UNSCH PRN PO/TUBE 01/27/17 07:45 Potassium Phosphate 30 mmol/ Sodium Chloride 260 ml @ 42 mls/hr UNSCH PRN IV 01/27/17 07:45 Vital Signs / I&O Vital Signs Date Time Temp Pulse Resp B/P (MAP) Pulse Ox O2 Delivery O2 Flow Rate FiO2 01/27/17 03:00 98.4 82 18 145/82 (103) 95 01/27/17 03:00 82 01/26/17 23:00 50 01/26/17 23:00 98.6 50 18 146/77 (100) 97 01/26/17 21:05 98 21 01/26/17 19:00 98.8 43 22 166/91 (116) 96 01/26/17 19:00 43 01/26/17 15:00 40 01/26/17 15:00 98.0 40 16 135/76 (95) 96 I/O 01/26/17 01/26/17 01/26/17 01/27/17 01/27/1720/17 07:00 15:00 23:00 07:00 15:00 23:00 Intake Total 480 ml 1020 ml 616 ml Output Total 600 ml 580 ml 850 ml Balance -120 ml 440 ml -234 ml Intake Oral 480 ml 800 ml 480 ml IV Total 220 ml 136 ml Output Urine Total 600 ml 580 ml 850 ml # Bowel Movements 1 1 0 Physical Exam GENERAL: NAD, AAOx3 SKIN: Warm and dry. HEAD: Atraumatic. Normocephalic. EYES: Pupils equal and round. No scleral icterus. No injection or drainage. ENT: No nasal bleeding or discharge. Mucous membranes pink and moist. NECK: Trachea midline. No JVD. CARDIOVASCULAR: Regular rate and rhythm. Mildly bradycardic RESPIRATORY: No accessory muscle use. Clear to auscultation. Breath sounds equal bilaterally. GASTROINTESTINAL: Abdomen soft, non-tender, nondistended. Hepatic and splenic margins not palpable. MUSCULOSKELETAL: Extremities without clubbing, cyanosis, or edema. No obvious deformities. NEUROLOGICAL: Awake and alert. No obvious cranial nerve deficits. Motor grossly within normal limits. Five out of 5 muscle strength in the arms and legs. Normal speech. PSYCHIATRIC: Appropriate mood and affect; insight and judgment normal. Laboratory Laboratory Tests Test 01/26/17 14:32 01/26/17 22:14 01/27/17 02:11 01/27/17 09:36 White Blood Count 8.2 TH/MM3 9.9 TH/MM3 Red Blood Count 5.14 MIL/MM3 5.34 MIL/MM3 Hemoglobin 11.6 GM/DL 11.9 GM/DL Hematocrit 36.3 % 37.3 % Mean Corpuscular Volume 70.5 FL 69.8 FL Mean Corpuscular Hemoglobin 22.6 PG 22.4 PG Mean Corpuscular Hemoglobin Concent 32.0 % 32.0 % Red Cell Distribution Width 14.3 % 14.1 % Platelet Count 239 TH/MM3 232 TH/MM3 Mean Platelet Volume 9.1 FL 8.8 FL Prothrombin Time 10.9 SEC Prothromb Time International Ratio 1.0 RATIO Activated Partial Thromboplast Time 27.3 SEC 28.7 SEC 39.7 SEC Blood Urea Nitrogen 15 MG/DL 13 MG/DL Creatinine 0.97 MG/DL 0.97 MG/DL Random Glucose 149 MG/DL 130 MG/DL Calcium Level 8.8 MG/DL 8.5 MG/DL Phosphorus Level 2.5 MG/DL 3.5 MG/DL 2.3 MG/DL Magnesium Level 1.8 MG/DL 1.6 MG/DL Sodium Level 138 MEQ/L 141 MEQ/L Potassium Level 3.9 MEQ/L 3.6 MEQ/L Chloride Level 104 MEQ/L 105 MEQ/L Carbon Dioxide Level 26.9 MEQ/L 26.2 MEQ/L Anion Gap 7 MEQ/L 10 MEQ/L Estimat Glomerular Filtration Rate 96 ML/MIN 96 ML/MIN Test 01/27/17 11:42 Activated Partial Thromboplast Time 38.3 SEC Assessment and Plan Problem List: (1) Elevated troponin I level ICD Codes: R74.8 - Abnormal levels of other serum enzymes Status: Acute (2) Complete heart block by electrocardiogram ICD Codes: I44.2 - Atrioventricular block, complete Status: Acute (3) Blood glucose elevated ICD Codes: R73.9 - Hyperglycemia, unspecified Status: Acute Assessment and Plan 1) High degree AV block, possible AV dissociation with complete heart block at times 2) Plan catheterization to look for possible coronary cause, also with elevated troponins NPO after midnight Metformin on hold Iodine allergy, plan Solumedrol/Pepcid/Benadryl occupational therapy assistant to the tender labor 3) Depending on the results, will most likely need PPM Discussed case with Dr. Holguin, will see tomorrow with a plan for PPM on Saturday 4) Electrolyte replacement Nate Rosado DO Jan 27, 2017 14:30
[2017-01-27 19:15] LABS: APTT (PATIENT) 48.9 SEC (24.3-30.1)
[2017-01-28 02:20] LABS: HEMATOCRIT 38.3 % (39.0-51.0); MEAN CELL VOLUME 70.3 FL (80.0-100.0); MEAN CORPUSCULAR HGB CONC 31.3 % (32.0-36.0); PLATELET COUNT 257 TH/MM3 (150-450); RED BLOOD COUNT 5.45 MIL/MM3 (4.50-5.90); RED CELL DISTRIBUTION WIDTH 14.2 % (11.6-17.2); REVIEW FLAG FINAL; WHITE BLOOD COUNT 9.4 TH/MM3 (4.0-11.0)
[2017-01-28 02:32] LABS: APTT (PATIENT) 51.3 SEC (24.3-30.1)
[2017-01-28 02:39] LABS: BICARBONATE 25.7 MEQ/L (21.0-32.0); MAGNESIUM 1.9 MG/DL (1.5-2.5); POTASSIUM 4.2 MEQ/L (3.5-5.1)
[2017-01-28 02:49] LABS: PROTHROMBIN TIME - PATIENT 11.1 SEC (9.8-11.6)
[2017-01-28 03:00] VITALS: BP 121/60; PULSE 35; RESP 22; TEMP 98.2; O2SAT 94
[2017-01-28] MEDS: CHLORHEXIDINE GLUCONATE 2 % 1 PACK (2 CLOTHS) TOP SCH (04:00)
[2017-01-28] MEDS: HEPARIN-D5W 25,000 U/250 ML 250 ML IV SCH (05:50)
[2017-01-28 07:00] VITALS: BP 164/90; PULSE 43; PULSE 50; RESP 18; TEMP 98.2; O2SAT 16; O2SAT 96
[2017-01-28] MEDS ORDERED: FAMOTIDINE 20 MG/2 ML VIAL IV PUSH ONE (09:00)
[2017-01-28] MEDS: FAMOTIDINE 20 MG TAB PO SCH ×2 (09:00→20:59)
[2017-01-28] MEDS: ASPIRIN 81 MG CHEW TAB CHEW SCH (09:00)
[2017-01-28] MEDS: GABAPENTIN 300 MG CAP PO SCH ×2 (09:00→20:59)
[2017-01-28] MEDS ORDERED: diphenhydrAMINE HCL 50 MG/ML VIAL IM ONE (09:00)
[2017-01-28] MEDS: PRAVASTATIN SOD 40 MG TAB PO SCH (09:00)
[2017-01-28] MEDS ORDERED: methylPREDNISolone SOD SUCC 125 MG/2 ML VIAL IV PUSH ONE (09:00)
[2017-01-28] MEDS ORDERED: VERAPAMIL HCL 5 MG/2 ML VIAL ONE (09:40)
[2017-01-28] MEDS ORDERED: HEPARIN-NS/PF INJ 1,000 ML ONE (09:40)
[2017-01-28] MEDS ORDERED: NITROGLYCERIN INJ 5 ML ONE (09:40)
[2017-01-28] MEDS ORDERED: MIDAZOLAM HCL 2 MG/2 ML VIAL ONE (09:41)
[2017-01-28] MEDS ORDERED: HEPARIN SODIUM - IV 10,000 UNITS/10 ML VIAL ONE (09:41)
[2017-01-28] MEDS: INSULIN ASPART SUPPLEMENTAL SCALE SQ SCH ×4 (09:45→23:46)
[2017-01-28] MEDS ORDERED: methylPREDNISolone SOD SUCC 125 MG/2 ML VIAL ONE (09:51)
[2017-01-28] MEDS ORDERED: diphenhydrAMINE HCL 50 MG/ML VIAL ONE (09:51)
--- NOTE | 2017-01-28 10:47 | CATHPROC ---
Prixing HIS Report Study Information Study Number Admission Scheduled Start Study Start [id number] Jan 25 2017 7:49PM 01/27/2017 Jan 28 2017 9:38AM [place] Service Cardiac Catheterization Admit Source Facility Department Emergency department [facility] - Tube Cleaning Operator Physician and Clinical Staff Initial Nate Barber Video Control Engineer Skye FrederickBSRN Video Control Engineer Alfred Parker,LENO Recorder Lana Ortiz,(R) (BS) Scrub Gopi Goodwin RCIS(BS) Procedures Performed Procedure Location (Site) Vessel Name Coronary Angiograms LCA Left Coronary Coronary Angiograms RCA Right Coronary L Heart Cath Wire insertion Radial (right) Radial Art. Equipment Time Jack Strip Assembler Description Size Mfg Part Number Used/Scraped TRANSDUCER, TRUWAVE [id number] 10:09 Exergyn SMITH * Used W/STOCKCOCK *[id number] *[id number] *[id number] 10:09 [employer] PACK, CCL CUSTOM * Used *[id number] 10:09 [employer] SUPPORT, ARTERIAL ADULT [id number] *[id number] Used BAND, RADIAL COMPRESSION TR [id number] 10:34 [employer] MEDICAL 24CM Used SHORT 24 *[id number] 10:09 [employer] WIRE, EXCHANGE 260CM 3MMJ 260CM Used *[id number] 10:09 NAMIC MANIFOLD, 4 PORT * Used *[id number] 10:09 [employer]ED OMNIPAQUE, 350 MG, 150ML 150ML [id number] Used [id number] 10:09 [facility] BLANKET,WARM AIR CCL * Used *[id number] SHEATH, FR6 TRANSRADIAL RM*[id number] 10:09 [employer]ire FR 6 Used SLENDER 10CM *[id number] History: Current Medications Medication Dosage/Unit Route Frequency Last Date/Time Taken ASA LOVENOX History: Allergies Allergy Reaction Fish Containing Products Swelling potassium iodide Swelling sodium iodide Swelling iodine Swelling povidone-iodine Swelling History: Risk Factors Family History of Hypertension Dyslipidemia Previous ME Previous Heart Failure Premature CAD Yes Yes Yes No No Prior Valve Prior PCI Prior CABG Surgery No No No Cerebrovascular Peripheral Artery Chronic Lung On Dialysis Diabetes Diabetes Therapy Disease Disease Disease No No No No Yes Oral History: Stress Tests Stress or Imaging Studies Performed No History: Other Current Smoker Method Quit Packs a Day Years Used Pack Years No Cigarettes 20 Years Ago 1 6 6 Labs Hgb (g/dl) Hct (%) WBC (l/cumm) Platelets (thousands) 11.60-17.00 35.00-51.00 4.00-11.00 150.00-450.00 12.0 38.3 9.4 257 Glucose (mg/dl) BUN (mg/dl) Creatinine (mg/dl) BUN:Creatinine (1:x) 74.00-106.00 7.00-18.00 0.50-1.30 10.00-20.00 190 13 1.0 13 Na (meq/l) K (meq/l) 136.00-145.00 3.50-5.10 138 4.2 INR (PTT:PT) 0.90-1.10 1 Troponin I (ng/ml) CPK-MB (ng/ML) 0.02-0.05 0.50-3.60 0.14 Not Drawn Medication Medication Total Dose (Bolus/Oral) Medication Total Dosage/Unit 1% XYLOCAINE 1 mL BENADRYL 25 mg FENTANYL 25 mcg PEPCID 20 mg RADIAL COCKTAIL 1 units SOLU-MEDROL 125 mg VERSED 0.5 mg Medications (Bolus/Oral) Medication Time Given Dosage/Unit Administered By Reason BENADRYL 01/28/2017 9:54:33 AM 25 mg Rittenour, Skye 25 mg BENADRYL given in lab by Skye Frederick BSRN in Left Antecubital via Peripheral IV. SOLU-MEDROL 01/28/2017 9:55:37 AM 125 mg Alfred Parker 125 mg SOLU-MEDROL given in lab by Alfred Parker RN in Left Antecubital via Peripheral IV. PEPCID 01/28/2017 9:56:54 AM 20 mg Rittenour, Skye 20 mg PEPCID given in lab by Skye Frederick BSRN in Left Antecubital via Peripheral IV. VERSED 01/28/2017 10:14:55 AM 0.5 mg Rittenour, Skye 0.5 mg VERSED given in lab by Skye Frederick BSRN in Left Antecubital via Peripheral IV. FENTANYL 01/28/2017 10:15:14 AM 25 mcg Rittenour, Skye 25 mcg FENTANYL given in lab by Skye Frederick BSRN in Left Antecubital via Peripheral IV. 1% XYLOCAINE 01/28/2017 10:15:46 AM 1 mL Nate Rosado 1 mL 1% XYLOCAINE given in lab by Nate Rosado in Right Radial via Subcutaneous. Ntg 200mcg Verapamil 2.5mg Heparin RADIAL COCKTAIL 01/28/2017 10:16:58 AM 1 units Nate Rosado 2000U 1 units RADIAL COCKTAIL given in lab by Nate Rosado in Right Radial via Radial. Reason: Ntg 200 mcg Heparin 4500U. Medication (Drip) Medication Time Given Dosage/Unit Concentration/Unit Diluent (ml) Solution HEPARIN DRIP STOPPED 01/28/2017 9:45:00 AM 0 units/hr 0 0 units/hr HEPARIN DRIP STOPPED given in lab by Skye Frederick BSRN via Peripheral IV. Pump/Drip F low = 0 ml/hr using [Solution Name]. IV Solutions 01/28/2017 9:51:15 AM 0 mL (IV) 500 NaCl .9 IV Solutions given in lab by Skye Frederick BSRN in Left Antecubital via Peripheral IV. Pump/Drip Flow = 100 ml/hr using NaCl .9. Initial Case Assessment Cardiovascular HR Rhythm NIBP Chest Pain 53 irr 190/113 0 Edema Present Skin color Skin None Normal Warm Dry Circulatory - Right Pulses Dorsalis Pedis Femoral 2 2 Scale (0,1,2,3,4,d) Circulatory - Left Pulses Dorsalis Pedis Femoral 2 2 Scale (0,1,2,3,4,d) Circulatory - Lower Extremities Color Lower Right Color Lower Left Normal Normal Neurological State Oriented to time-place- Alert Moves all extremities person Respiration - General Respiration Rate SpO2 (%) (B/min) 9 100 Chronological Log Time Study Chronological Log 0 units/hr HEPARIN DRIP STOPPED given in lab by Skye Frederick BSRN via Peripheral IV. Pump/ Drip Flow = 0 ml/hr 9:45:00 using [Solution Name]. 9:50:43 Patient arrived via Bed. 9:50:44 Patient Name, D.O.B, / Armband Verified By R.N. 9:50:44 Consent signed by the physician and the patient and verified by the Tube Cleaning Operator staff. 9:50:45 Pre-op and post- op instructions given; patient acknowledges understanding of instructions. 9:50:46 Verbal Stimulation=2 Physical Stimulation=2 Airway=2 Respiration=2 TOTAL=8. (0=absent, 1=li mited, 2=present) 9:50:48 Presedation assessment performed by Tube Cleaning Operator RN. 9:51:06 Allens test performed on the right radial and ulnar artery. 9:51:09 Patient has been NPO for More than 6Hrs. 9:51:10 Skin Breakdown none per pt 9:51:11 Patient Warmer Placed on the Table. 9:51:13 Carolee Prominences Protected 9:51:14 A # 20 IV was noted in the Antecubital (left). Grade = 0 IV Solutions given in lab by Skye Frederick BSRN in Left Antecubital via Peripheral IV. Pump /Drip Flow = 100 ml/hr 9:51:15 using NaCl .9. 9:51:17 History and physical on the chart or being dictated. Assessment: Initial Case, HR=53 BPM, Rhythm=irr, TCWA=346/113 mmhg, Chest Pain=0, Edema=None, Color=Normal, Skin = Warm, Dry Right Pulses: Bridger Ped=2, Femoral=2 Left Pulses: Bridger Ped=2, Femoral=2 9:51:19 Lower Right Extremities: Color=Normal Lower Left Extremities: Color=Normal Neurological: State=Alert, Ox3, MACDONALD Respiration: Resp=9 B/min, QqP1=090 % 9:51:22 A # 20 IV was noted in the Forearm (right). Grade = 0 9:54:33 25 mg BENADRYL given in lab by Skye Frederick BSRN in Left Antecubital via Peripheral IV. 9:55:37 125 mg SOLU-MEDROL given in lab by Alfred Parker, LENO in Left Antecubital via Peripheral IV. 9:56:54 20 mg PEPCID given in lab by Skye Frederick BSRN in Left Antecubital via Peripheral IV. Vitals capture started with the following parameters, Patient=Adult, Interval=5 min, Initial Pr tewthd=826 mmHg, 9:58:26 Deflation Rate=5 mmHg, Cuff placed on Left Leg 9:59:39 HR=46 bpm, KUKP=447/113 mmhg, HvC0=818.0 %, Pain=0, Baldomero=10, Carrillo=2 10:04:10 HR=52 bpm, BDEM=855/96 mmhg, PsN7=813.0 %, Resp=1 B/min, Pain=0, Baldomero=10, Carrillo=2 10:04:58 Right Radial and right groin prepped with 2% chlorhexidine, and with a 3 min. waiting time. 10:09:13 HR=53 bpm, COFY=631/101 mmhg, ShA2=661.0 %, Resp=20 B/min, Pain=0, Baldomero=10, Carrillo=2 10:09:41 Reference ECG taken Time Out. Correct patient, correct procedure,correct physician, power injector not loaded with contrast with surgical 10:13:43 team present. Time Out Concurred by , individual staff in procedure 10:14:08 Case Start 10:14:12 HR=51 bpm, TJJU=155/94 mmhg, SpO2=99.0 %, Resp=20 B/min, Pain=0, Baldomero=10, Carrillo=2 10:14:55 0.5 mg VERSED given in lab by Skye Frederick BSRN in Left Antecubital via Peripheral IV. 10:15:14 25 mcg FENTANYL given in lab by Skye Frederick BSRN in Left Antecubital via Peripheral I V. 10:15:46 1 mL 1% XYLOCAINE given in lab by Nate Rosado in Right Radial via Subcutaneous. 10:16:29 Access site was right Radial Artery. A SHEATH, FR6 TRANSRADIAL SLENDER 10CM FR 6 was advanced into the Radial (right) using the Perc utaneous 10:16:45 technique. 1 units RADIAL COCKTAIL given in lab by Nate Rosado in Right Radial via Radial. Reason: N tg 200mcg Heparin 10:16:58 4500U. 10:18:03 Pressure channel 1 zeroed. A JR 4.0 INFINITI CATHETER FR 5 was advanced over a wire. OMNIPAQUE, 350 MG, 150ML 150ML was us ed for 10:18:23 injections. 10:19:09 HR=53 bpm, HJBT=010/98 mmhg, SpO2=98.0 %, Resp=21 B/min, Pain=0, Baldomero=10, Carrillo=2 Recorded Pressure: LV, HR=48, Condition=Condition 1 10:19:59 (Left Ventricle) LV 132/0/7 Recorded Pressure: LV, Ao, HR=55, Condition=Condition 1 10:20:17 (Left Ventricle) LV 135/1/7, (Aorta) Ao 139/81/105 10:20:42 The RCA was injected and visualized at various angles. OMNIPAQUE, 350 MG, 150ML 150ML used . Recorded Pressure: Ao, HR=57, Condition=Condition 1 10:21:18 (Aorta) Ao 142/88/111 After removing the current catheter a JL 3.5 INFINITI CATHETER FR 5 was advanced over a WIRE, E XCHANGE 260CM 10:21:29 3MMJ 260CM. 10:22:40 The LCA was injected and visualized at various angles. OMNIPAQUE, 350 MG, 150ML 150ML used . 10:24:37 HR=48 bpm, YLAW=292/87 mmhg, SpO2=96.0 %, Resp=18 B/min, Pain=0, Baldomero=10, Carrillo=2 10:28:14 A WIRE, EXCHANGE 260CM 3MMJ 260CM was inserted via Radial (right). 10:28:28 Catheter was removed 10:29:44 HR=47 bpm, TJYV=813/95 mmhg, SpO2=97.0 %, Resp=20 B/min, Pain=0, Baldomero=10, Carrillo=2 10:30:14 Case End 10:31:59 CVICU called. Spoke to Lilian. Radial Compression Device Used. 8 mLs of air placed in BAND, RADIAL COMPRESSION TR SHORT 24 24 CM. Affected 10:32:26 hand 95 % O2 saturation. 10:34:15 Vitals capture stopped. 10:34:46 No case complications noted. 10:34:47 Cine recording checked. 10:34:50 Bedside Report will be given. 10:34:54 Contrast Scanned 10:34:56 A Left Heart Cath was performed. 10:38:20 Patient moved to stretcher End Study - Contrast Media Used In Study Contrast Total Opened (mL) Total Used (mL) Total Wasted (mL) Omnipaque 45 45 0 End Study - Maximum Contrast Load Max Contrast Load (mL) 582.5 End Study - Radiation Exposure Fluoro Time (minutes) 2.4 End Study - Sheaths Sheaths Pulled By Sheath Hold Time (min) Nate Rosado End Study - Patient Disposition Complications Transferred To Interventional Outcome No Critical Care Bed No attempt made
[2017-01-28 11:00] VITALS: BP 149/76; PULSE 44; RESP 16; TEMP 98; O2SAT 94
[2017-01-28] MEDS ORDERED: MISC INFORMATION XX ONE (11:00)
[2017-01-28] MEDS ORDERED: IOHEXOL 350 MG/ML 50 ML BTL (for Cath Lab) OTHER ONE (13:10)
[2017-01-28 15:00] VITALS: BP 157/76; PULSE 50; RESP 14; TEMP 98.5; O2SAT 95
--- NOTE | 2017-01-28 17:10 | PD.CARD.PN ---
Subjective Subjective Remarks Post-cath doing well No complaints Objective Medications Current Medications Medications (Trade) Dose Ordered Sig/Juju Route Start Time Stop Time Status Last Admin (NS Flush) 2 ml UNSCH PRN IVF 01/25/17 19:30 01/26/17 08:06 (Tylenol) 650 mg Q6H PRN PO 01/26/17 01:45 (Pepcid) 20 mg Q12HR PO 01/26/17 09:00 01/27/17 21:52 (Restoril) 15 mg HS PRN PO 01/26/17 01:45 Miscellaneous Information 1 Q361D XX 01/26/17 01:45 01/26/17 01:45 (Chlorhexidine 2% Cloth) 3 pack Taper DAILY@04 TOP 01/26/17 04:00 01/22/18 03:59 01/27/17 04:00 (Chlorhexidine 2% Cloth) 3 pack UNSCH PRN TOP 01/26/17 01:45 (D50w (Vial) Inj) 50 ml UNSCH PRN IV 01/26/17 01:45 (Glucagon Inj) 1 mg UNSCH PRN OTHER 01/26/17 01:45 (NovoLOG SUPPLEMENTAL SCALE) 1 Q4H SQ 01/26/17 01:45 01/28/17 14:45 (Apresoline Inj) 20 mg Q2H PRN IV PUSH 01/26/17 01:45 (Aspirin Chew) 81 mg DAILY CHEW 01/26/17 09:00 01/27/17 09:00 (Vasotec Inj) 2.5 mg Q6H PRN IV PUSH 01/26/17 02:00 (Atropine Inj) 1 mg UNSCH PRN IV PUSH 01/26/17 02:15 (Neurontin) 300 mg BID PO 01/26/17 09:00 01/27/17 21:52 (Pravachol) 40 mg DAILY PO 01/26/17 09:00 01/27/17 09:00 (Glucophage) 1,000 mg BIDPC PO 01/26/17 02:15 Future hold 01/26/17 18:19 Potassium Chloride 100 ml @ 50 mls/hr Q2H PRN IV 01/27/17 07:45 Potassium Chloride 100 ml @ 50 mls/hr Q2H PRN IV 01/27/17 07:45 (K-Lyte Cl Eff) 50 meq UNSCH PRN PO 01/27/17 07:45 01/27/17 16:26 Potassium Chloride 100 ml @ 25 mls/hr UNSCH PRN IV 01/27/17 07:45 Potassium Chloride 100 ml @ 50 mls/hr Q2H PRN IV 01/27/17 07:45 Magnesium Sulfate 4 gm/Sodium Chloride 100 ml @ 50 mls/hr UNSCH PRN IV 01/27/17 07:45 (Mag-Ox) 800 mg UNSCH PRN PO 01/27/17 07:45 Magnesium Sulfate 2 gm/Sodium Chloride 100 ml @ 50 mls/hr UNSCH PRN IV 01/27/17 07:45 (K-Phos) 2,000 mg Q4H PRN PO 01/27/17 07:45 Sodium Phosphate 30 mmol/Sodium Chloride 250 ml @ 42 mls/hr UNSCH PRN IV 01/27/17 07:45 (K-Phos) 2,000 mg UNSCH PRN PO/TUBE 01/27/17 07:45 Potassium Phosphate 30 mmol/ Sodium Chloride 260 ml @ 42 mls/hr UNSCH PRN IV 01/27/17 07:45 Vital Signs / I&O Vital Signs Date Time Temp Pulse Resp B/P (MAP) Pulse Ox O2 Delivery O2 Flow Rate FiO2 01/28/17 07:23 21 01/28/17 07:00 43 01/28/17 07:00 98.2 50 18 164/90 (114) 16 01/28/17 03:00 98.2 35 22 121/60 (80) 94 01/28/17 03:00 35 01/27/17 23:00 98.3 49 18 148/72 (97) 97 01/27/17 23:00 49 01/27/17 20:05 98 21 01/27/17 19:00 45 01/27/17 19:00 98.4 45 22 154/76 (102) 98 I/O 01/27/17 01/27/17 01/27/17 01/28/17 01/28/17 01/28/17 07:00 15:00 23:00 07:00 15:00 23:00 Intake Total 616 ml 1015 ml 570 ml 42.2 ml Output Total 850 ml 850 ml 400 ml Balance -234 ml 165 ml 170 ml 42.2 ml Intake Oral 480 ml 720 ml 440 ml IV Total 136 ml 295 ml 130 ml 42.2 ml Output Urine Total 850 ml 850 ml 400 ml # Bowel Movements 0 0 0 Physical Exam GENERAL: NAD, AAOx3 SKIN: Warm and dry. HEAD: Atraumatic. Normocephalic. EYES: Pupils equal and round. No scleral icterus. No injection or drainage. ENT: No nasal bleeding or discharge. Mucous membranes pink and moist. NECK: Trachea midline. No JVD. CARDIOVASCULAR: Regular rate and rhythm. Mildly bradycardic RESPIRATORY: No accessory muscle use. Clear to auscultation. Breath sounds equal bilaterally. GASTROINTESTINAL: Abdomen soft, non-tender, nondistended. Hepatic and splenic margins not palpable. MUSCULOSKELETAL: Extremities without clubbing, cyanosis, or edema. No obvious deformities. NEUROLOGICAL: Awake and alert. No obvious cranial nerve deficits. Motor grossly within normal limits. Five out of 5 muscle strength in the arms and legs. Normal speech. PSYCHIATRIC: Appropriate mood and affect; insight and judgment normal. Laboratory Laboratory Tests Test 01/27/17 18:41 01/28/17 02:12 Activated Partial Thromboplast Time 48.9 SEC 51.3 SEC White Blood Count 9.4 TH/MM3 Red Blood Count 5.45 MIL/MM3 Hemoglobin 12.0 GM/DL Hematocrit 38.3 % Mean Corpuscular Volume 70.3 FL Mean Corpuscular Hemoglobin 22.0 PG Mean Corpuscular Hemoglobin Concent 31.3 % Red Cell Distribution Width 14.2 % Platelet Count 257 TH/MM3 Mean Platelet Volume 7.9 FL Prothrombin Time 11.1 SEC Prothromb Time International Ratio 1.0 RATIO Blood Urea Nitrogen 13 MG/DL Creatinine 1.04 MG/DL Random Glucose 190 MG/DL Calcium Level 8.7 MG/DL Phosphorus Level 3.0 MG/DL Magnesium Level 1.9 MG/DL Sodium Level 138 MEQ/L Potassium Level 4.2 MEQ/L Chloride Level 105 MEQ/L Carbon Dioxide Level 25.7 MEQ/L Anion Gap 7 MEQ/L Estimat Glomerular Filtration Rate 89 ML/MIN Assessment and Plan Problem List: (1) Elevated troponin I level ICD Codes: R74.8 - Abnormal levels of other serum enzymes Status: Acute (2) Complete heart block by electrocardiogram ICD Codes: I44.2 - Atrioventricular block, complete Status: Acute (3) Blood glucose elevated ICD Codes: R73.9 - Hyperglycemia, unspecified Status: Acute Assessment and Plan 1) High degree AV block, possible AV dissociation with complete heart block at times 2) No significant CAD noted on cath Metformin on hold 3) Dr. Holguin to see the patient for consideration of PPM 4) CVICU for now Concern for 3rd degree HB with rates around 38-42, although overall stable Nate Rosado DO Jan 28, 2017 17:10
[2017-01-28 19:00] VITALS: BP 166/87; PULSE 68; RESP 20; TEMP 98.4; O2SAT 96
--- NOTE | 2017-01-28 19:31 | HHI.CCPN ---
Subjective Remarks/Hospital Course 56 y/o man observed to have complete heart block on ECG today in private physicians office. Sent to [place] ED and transferred to [facility] where I met him on his arrival. No chest pain, SOB, syncope, light-headedness. Electrolytes acceptable range. Mag 1.4. K 3.8. Trop 0.14. ECG with variable ventricular response in the 40s. SBP 160s. Dr. Rosado has reviewed and discussed with me plan of care. No specific possible causative medications. Patient has IDDM, hypertension, anxiety. Subjective: 01/27: Afebrile. Patient up most of the night patient anxious regarding impending procedure cardiac catheter and pacemaker that he related to me. The patient is tolerating a diet. Heart rate ranges throughout the last 24 hours 41 82. The patient was noted to have a magnesium level I.6 which will be replaced today. Plan for cardiac catheterization and possible pacemaker implantation tomorrow. 01/28: still with significant bradycardia, 3rd degree HB, HR in the low 30s. [facility] plan for today and plan for EP study tomorrow. patient without complaints, ROS negative. Objective Vital Signs Date Time Temp Pulse Resp B/P (MAP) Pulse Ox O2 Delivery O2 Flow Rate FiO2 01/28/17 07:23 21 01/28/17 07:00 43 01/28/17 07:00 98.2 18 164/90 (114) 16 01/26/17 00:22 Room Air Intake and Output 01/28/17 01/28/17 01/29/17 08:00 16:00 00:00 Intake Total 570 ml 42.2 ml Output Total 400 ml Balance 170 ml 42.2 ml Result Diagram: 01/28/1721101/28/17211 Imaging Last Impressions Chest X-Ray 01/25/171929 Signed Impressions: Service Date/Time: Wednesday, January 25, 2017 19:42 - CONCLUSION: No evidence of acute cardiopulmonary disease. Yoan Lindquist MD CXR: Clear Objective Remarks Gen: Alert, comfortable. Head: Normal. Neck: Supple, airway clear. Lungs: Clear, no adventitious sounds. Comfortable pattern. Heart: Irreg, Irreg, bradycardia 37-40. No murmurs rubs or gallops No JVD. Abdomen: Benign, soft. Normoactive bowel sounds Extremities: Warm, well perfused. No edema no cyanosis Neuro: O X 3, alert, conversant. Follows commands, moves extremities 4. A/P Assessment and Plan Assessment: 1. Complete Heart Block, periodic atrial fibrillation with bradycardic response. 2. Hypertension. 3. DM, Type 2, poorly controlled. 4. Hyperlipidemia. Plan: - Telemetry. - Bed rest, up with assistance. - Full anticoagulation. - Pepcid. - Q4h SSI until better glucose control. Hold NPH in case made NPO for possible procedure. - Atropine for sustained rate < 38. - Hydralazine for hypertension - Hold ARB. - No AV node conduction blockers for HTN. - Heparin infusion -management per cardiology - plan for EP study tomorrow - keep in ICU with close watch given severe bradycardia - discussed care with Dr. Rosado. - once EP study complete, can transfer to floor. Overall impression: Warm and well perfused. Patient states he has a pulse in the 40s most of the time for many months, possibly years. continue anticoagulation and ICU monitoring given severe bradycardia. EP Study tomorrow, once complete could be stable for transfer to floor. Lloyd Gaytan MD Jan 28, 2017 19:31
--- NOTE | 2017-01-28 21:54 | MB ---
cc: MERVIN CHAUHAN M.D. DATE OF CONSULTATION 01/28/17 REASON FOR CONSULTATION Bradycardia, possible permanent pacemaker insertion. HISTORY OF PRESENT ILLNESS Mr. Hurtado is a 56-year-old -[place]ian gentleman with history of high blood pressure, obesity, diabetes mellitus, hyperlipidemia. He was previously evaluated around 3 years ago due to AV dissociation. The gentleman went to see his primary doctor on Saturday. He was referred to the emergency room due to high-grade AV block. He is asymptomatic. During hospitalization he was capped by Dr. Rosado. There was no significant occlusion. I was consulted for further evaluation and management. The chart was reviewed. The patient was evaluated. ALLERGIES MULTIPLE, FISH PRODUCTS, IODINE, POTASSIUM. SOCIAL HISTORY Gentleman denies smoking and drinking. FAMILY HISTORY Noncontributory to his current medical condition. MEDICATIONS The gentleman is currently on: 1. Heparin IV. 2. He is on potassium. 3. He is on acetaminophen. 4. Aspirin. 5. Enalapril. 6. Famotidine. 7. Metformin. 8. Magnesium sulfate. REVIEW OF SYSTEMS Currently he refers no chest pain, no chest discomfort. No shortness of breath. No palpitation. No vomiting. No fever. PHYSICAL EXAMINATION GENERAL: Alert, fully oriented. VITAL SIGNS: Blood pressure high 164/90, pulse around 50, respiratory rate 18. LUNGS: Ventilated CARDIOVASCULAR: S1-S2, regular. ABDOMEN: Soft. No mass. No bruit. EXTREMITIES: No edema. CARDIOLOGY STUDIES Electrocardiogram in hospitalization which show what appeared to be a junctional rhythm, now QRS AV dissociation. Subsequent electrocardiogram shows sinus rhythm. LABORATORY DATA Hemoglobin is 12, white blood cell 9.4, potassium 4.2, creatinine 1.04, INR 1.0. Echocardiogram indicated normal ejection fraction 60-65%. ASSESSMENT AND RECOMMENDATIONS Mr. Hurtado is asymptomatic. He is very active. He had work. He walks at least two to three miles a day. I did seen two and a half years ago. At that time the gentleman was anxious about his AV block. I advised him to look for a second opinion. Apparently, he went to Dr. Espinosa and again Dr. Espinosa concluded just like myself there is no need for pacemaker. There is some concern from the MD. The patient currently stable, asymptomatic. Most of the bradycardia observed during the night. Left heart catheterization indicated, no need for revascularization. The gentleman has a normal ejection fraction. I had a long conversation with him and his family, mainly his . At this point I am going to the electrophysiology study. If there is no infra His disease no device will be implanted. Case discussed extensively with them. N.p.o. after midnight. Mervin Chauhan MD HS/EO /6:11 PM /9:35 PM
--- NOTE | 2017-01-28 23:52 | MA ---
cc: NATE CISNEROS DO DATE: January 28, 2017 PROCEDURE Left heart catheterization, coronary angiogram, moderate sedation 15 minutes. PREPROCEDURE DIAGNOSIS Elevated troponin, third degree heart block. POSTPROCEDURE DIAGNOSIS Mild coronary artery disease by cardiac catheterization, third degree heart block. MEDICATIONS 1. Versed 0.5 milligrams. 2. Fentanyl 25 micrograms. 3. Benadryl 25 milligrams. 4. Solu-Medrol 125 milligrams. 5. Pepcid 20 milligrams. 6. Nitro 200 micrograms. 7. Heparin 450 units. CONTRAST 45 cc. FLUOROSCOPY 2.4 minutes. SEDATION Moderate sedation 15 minutes. ESTIMATED BLOOD LOSS 10 cc. PROCEDURAL SUMMARY Liam Hurtado is a pleasant 56-year-old male who presented to [facility] due to the request of his primary care physician as he was noted to have third degree heart block on his EKG. He had a mild elevation of his troponins and because of this as well as a third degree heart block it was felt that he should undergo cardiac catheterization. Risks, benefits and alternatives were explained to him and he consented as such. He was brought to the lab and prepped in the usual sterile fashion. Right radial artery was accessed using a modified Seldinger technique and placement of a 5/6 Thai slender sheath. This was easily aspirated and flushed. A JR-4 was advanced over a J-wire to the ascending aorta and across the aortic valve for measurement of left ventricular pressure. This was pulled back across the aortic valve showing no significant gradient of aortic stenosis. JR-4 was used for selective angiography of the right coronary system. This was exchanged out for a JL-3.5 which was used for selective angiography of the left coronary system. JL-3.5 was removed over a J-wire. A radial band was placed over the arteriotomy site for hemostasis. The patient left the labor economist cardiovascularly stable. FINDINGS Left main: Normal size vessel with adequate reflux. No significant disease. It bifurcates into an LAD and circumflex. LAD proximal shows mild luminal irregularities. The midportion has some mild tortuosity with a 20-30% lesion. It gives off one major diagonal branch that has no disease in it. Left circumflex: Normal size vessel with mild luminal irregularities throughout the midportion. It gives off two major obtuse marginals with one posterior lateral branch. Second and third obtuse marginals have mild luminal irregularities but no significant disease. RCA: Normal-size vessel with mild tortuosity throughout the midportion. There is a 30% lesion in the midportion. The RCA is a dominant vessel. LVEDP 7. IMPRESSION 1. Third degree heart block. 2. Mildly elevated troponin most likely due to stress from third degree heart block. 3. Mild coronary artery disease by cardiac catheterization. RECOMMENDATIONS 1. Mr. Hurtado appears to have no significant disease leading to his third degree heart block. 2. He will be seen by Dr. Holguin, EP cardiology, for consideration of a permanent pacemaker. 3. He will be watched in the CV ICU, although, overall his blood pressure has been stable and he has been asymptomatic from his third degree heart block. Thank you for allowing me to see Liam Hurtdao. If there are any questions please do not hesitate to call. Nate Cisneros DO VGP/EO /10:08 PM /11:35 PM
[2017-01-29] VITALS (12 sets, daily range): BP systolic 122–168; BP diastolic 65–88; PULSE 37–66; RESP 12–20; TEMP 98–98.7; O2SAT 96–98
[2017-01-29] MEDS: CHLORHEXIDINE GLUCONATE 2 % 1 PACK (2 CLOTHS) TOP SCH (04:00)
[2017-01-29] MEDS: INSULIN ASPART SUPPLEMENTAL SCALE SQ SCH ×5 (05:45→21:58)
[2017-01-29 05:48] LABS: BICARBONATE 21.5 MEQ/L (21.0-32.0); POTASSIUM 4.5 MEQ/L (3.5-5.1)
[2017-01-29 05:57] LABS: APTT (PATIENT) 25.4 SEC (24.3-30.1)
[2017-01-29 06:58] LABS: AUTOMATED NEUTROPHIL # 15.4 TH/MM3 (1.8-7.7); BASOPHIL # 0.1 TH/MM3 (0-0.2); BASOPHIL % 0.3 % (0.0-2.0); HEMATOCRIT 41.2 % (39.0-51.0); HEMO FLAGS DIFF FINAL; LYMPH % 10.8 % (9.0-44.0); MEAN CELL VOLUME 69.7 FL (80.0-100.0); MEAN CORPUSCULAR HEMOGLOBIN 21.9 PG (27.0-34.0); MEAN CORPUSCULAR HGB CONC 31.4 % (32.0-36.0); MONO % 5.5 % (0.0-8.0); NEUT % 83.4 % (16.0-70.0); PLATELET COUNT 229 TH/MM3 (150-450); RED BLOOD COUNT 5.91 MIL/MM3 (4.50-5.90); RED CELL DISTRIBUTION WIDTH 14.4 % (11.6-17.2); WHITE BLOOD COUNT 18.4 TH/MM3 (4.0-11.0)
[2017-01-29 07:50] LABS: BANDS 8 % (0-6); NEUTROPHIL # MANUAL DIFF 15.6 TH/MM3 (1.8-7.7); POLYS (SEG NEUTROPHILS) 77 % (16-70); WBC DIFF SAMPLE 100
[2017-01-29 07:51] LABS: OVALOCYTES 1+ (NORMAL); PLATELET ESTIMATE SMEAR NORMAL (NORMAL); PLATELET MORPHOLOGY NORMAL (NORMAL); SCAN/DIFF FINAL DIFF MANUAL
[2017-01-29] MEDS: PRAVASTATIN SOD 40 MG TAB PO SCH (09:00)
[2017-01-29] MEDS: LOSARTAN 50 MG TAB PO SCH (09:12)
[2017-01-29] MEDS: FAMOTIDINE 20 MG TAB PO SCH ×2 (09:12→21:58)
[2017-01-29] MEDS: ASPIRIN 81 MG CHEW TAB CHEW SCH (09:12)
[2017-01-29] MEDS: GABAPENTIN 300 MG CAP PO SCH ×2 (09:12→21:58)
[2017-01-29] MEDS: SODIUM CHLORIDE 0.9% FLUSH 10 ML FLUSH IVF PRN (09:13)
--- NOTE | 2017-01-29 13:39 | HHI.CCPN ---
Subjective Remarks/Hospital Course 56 y/o man observed to have complete heart block on ECG today in private physicians office. Sent to [place] ED and transferred to [facility] [place] [place] CVICU where I met him on his arrival. No chest pain, SOB, syncope, light-headedness. Electrolytes acceptable range. Mag 1.4. K 3.8. Trop 0.14. ECG with variable ventricular response in the 40s. SBP 160s. Dr. Rosado has reviewed and discussed with me plan of care. No specific possible causative medications. Patient has IDDM, hypertension, anxiety. Subjective: 01/27: Afebrile. Patient up most of the night patient anxious regarding impending procedure cardiac catheter and pacemaker that he related to me. The patient is tolerating a diet. Heart rate ranges throughout the last 24 hours 41 82. The patient was noted to have a magnesium level I.6 which will be replaced today. Plan for cardiac catheterization and possible pacemaker implantation tomorrow. 01/28: still with significant bradycardia, 3rd degree HB, HR in the low 30s. [facility] plan for today and plan for EP study tomorrow. patient without complaints, ROS negative. 01/29: bradycardia persists. plan for EP study today. ROS negative. patient without complaints. Objective Vital Signs Date Time Temp Pulse Resp B/P (MAP) Pulse Ox O2 Delivery O2 Flow Rate FiO2 01/29/17 11:04 52 01/29/17 11:03 98.7 20 157/77 (103) 96 01/28/17 21:53 21 01/26/17 00:22 Room Air Intake and Output 01/29/17 01/29/17 01/30/17 08:00 16:00 00:00 Intake Total 240 ml Output Total 1625 ml Balance -1385 ml Result Diagram: 01/29/1751801/29/17518 Imaging Last Impressions Chest X-Ray 01/25/17 193 Signed Impressions: Service Date/Time: Wednesday, January 25, 2017 19:42 - CONCLUSION: No evidence of acute cardiopulmonary disease. Yoan Lindquist MD CXR: Clear Objective Remarks Gen: Alert, comfortable. Head: Normal. Neck: Supple, airway clear. Lungs: Clear, no adventitious sounds. Comfortable pattern. Heart: Irreg, Irreg, bradycardia 35-37. No murmurs rubs or gallops No JVD. Abdomen: Benign, soft. Normoactive bowel sounds Extremities: Warm, well perfused. No edema no cyanosis Neuro: O X 3, alert, conversant. Follows commands, moves extremities 4. A/P Assessment and Plan Assessment: 1. Complete Heart Block, periodic atrial fibrillation with bradycardic response. 2. Hypertension. 3. DM, Type 2, poorly controlled. 4. Hyperlipidemia. Plan: - Telemetry. - Bed rest, up with assistance. - Pepcid. - Q4h SSI until better glucose control. - Atropine for sustained rate < 38 with symptoms - Hydralazine for hypertension - Hold ARB. - No AV node conduction blockers for HTN. - plan for EP study today - could transfer out of ICU after EP study. - discussed care with Dr. Rosado. Overall impression: Warm and well perfused. Patient states he has a pulse in the 40s most of the time for many months, possibly years. continue ICU monitoring given severe bradycardia. Once EP study complete could be stable for transfer to floor. Lloyd Gaytan MD Jan 29, 2017 13:39
[2017-01-29] MEDS: HEPARIN SODIUM - SQ 10,000 UNITS/ML VIAL SQ SCH ×2 (15:05→21:59)
--- NOTE | 2017-01-29 19:13 | PD.CARD.PN ---
Subjective Subjective Remarks Patient seen this morning Doing well, no complaints Telemetry with bradycardia, occasional high degree AV block Objective Medications Current Medications Medications (Trade) Dose Ordered Sig/Juju Route Start Time Stop Time Status Last Admin (NS Flush) 2 ml UNSCH PRN IVF 01/25/17 19:30 01/29/17 09:13 (Tylenol) 650 mg Q6H PRN PO 01/26/17 01:45 (Pepcid) 20 mg Q12HR PO 01/26/17 09:00 01/29/17 09:12 (Restoril) 15 mg HS PRN PO 01/26/17 01:45 Miscellaneous Information 1 Q361D XX 01/26/17 01:45 01/26/17 01:45 (Chlorhexidine 2% Cloth) 3 pack Taper DAILY@04 TOP 01/26/17 04:00 01/22/18 03:59 01/29/17 04:00 (Chlorhexidine 2% Cloth) 3 pack UNSCH PRN TOP 01/26/17 01:45 (D50w (Vial) Inj) 50 ml UNSCH PRN IV 01/26/17 01:45 (Glucagon Inj) 1 mg UNSCH PRN OTHER 01/26/17 01:45 (NovoLOG SUPPLEMENTAL SCALE) 1 Q4H SQ 01/26/17 01:45 01/29/17 18:27 (Apresoline Inj) 20 mg Q2H PRN IV PUSH 01/26/17 01:45 (Aspirin Chew) 81 mg DAILY CHEW 01/26/17 09:00 01/29/17 09:12 (Atropine Inj) 1 mg UNSCH PRN IV PUSH 01/26/17 02:15 (Neurontin) 300 mg BID PO 01/26/17 09:00 01/29/17 09:12 (Pravachol) 40 mg DAILY PO 01/26/17 09:00 01/29/17 09:00 (Glucophage) 1,000 mg BIDPC PO 01/26/17 02:15 Future hold 01/26/17 18:19 Potassium Chloride 100 ml @ 50 mls/hr Q2H PRN IV 01/27/17 07:45 Potassium Chloride 100 ml @ 50 mls/hr Q2H PRN IV 01/27/17 07:45 (K-Lyte Cl Eff) 50 meq UNSCH PRN PO 01/27/17 07:45 01/27/17 16:26 Potassium Chloride 100 ml @ 25 mls/hr UNSCH PRN IV 01/27/17 07:45 Potassium Chloride 100 ml @ 50 mls/hr Q2H PRN IV 01/27/17 07:45 Magnesium Sulfate 4 gm/Sodium Chloride 100 ml @ 50 mls/hr UNSCH PRN IV 01/27/17 07:45 (Mag-Ox) 800 mg UNSCH PRN PO 01/27/17 07:45 Magnesium Sulfate 2 gm/Sodium Chloride 100 ml @ 50 mls/hr UNSCH PRN IV 01/27/17 07:45 (K-Phos) 2,000 mg Q4H PRN PO 01/27/17 07:45 Sodium Phosphate 30 mmol/Sodium Chloride 250 ml @ 42 mls/hr UNSCH PRN IV 01/27/17 07:45 (K-Phos) 2,000 mg UNSCH PRN PO/TUBE 01/27/17 07:45 Potassium Phosphate 30 mmol/ Sodium Chloride 260 ml @ 42 mls/hr UNSCH PRN IV 01/27/17 07:45 (Norvasc) 10 mg DAILY PO 01/28/17 18:15 01/29/17 09:12 (Cozaar) 100 mg DAILY PO 01/29/17 09:00 01/29/17 09:12 (Heparin Inj) 5,000 units Q8H SQ 01/29/17 15:00 01/29/17 15:05 Vital Signs / I&O Vital Signs Date Time Temp Pulse Resp B/P (MAP) Pulse Ox O2 Delivery O2 Flow Rate FiO2 01/29/17 15:00 98.1 46 17 137/69 (91) 98 01/29/17 15:00 46 01/29/17 11:04 52 01/29/17 11:03 98.7 52 20 157/77 (103) 96 01/29/17 08:02 50 01/29/17 08:01 98.4 50 20 158/88 (111) 96 01/29/17 03:30 98.4 41 20 147/66 (93) 96 01/29/17 03:00 41 01/29/17 02:00 56 01/29/17 01:00 47 01/29/17 00:00 98.0 64 20 168/81 (110) 96 01/28/17 21:53 21 I/O 01/28/17 01/28/17 01/28/17 01/29/17 01/29/17 01/29/17 06:59 14:59 22:59 06:59 14:59 22:59 Intake Total 570 ml 42.2 ml 720 ml 240 ml 200 ml Output Total 400 ml 975 ml 1625 ml 940 ml Balance 170 ml 42.2 ml -255 ml -1385 ml -740 ml Intake Oral 440 ml 720 ml 240 ml 200 ml IV Total 130 ml 42.2 ml 0 ml Output Urine Total 400 ml 975 ml 1625 ml 940 ml # Bowel Movements 0 0 0 Physical Exam GENERAL: NAD, AAOx3 SKIN: Warm and dry. HEAD: Atraumatic. Normocephalic. EYES: Pupils equal and round. No scleral icterus. No injection or drainage. ENT: No nasal bleeding or discharge. Mucous membranes pink and moist. NECK: Trachea midline. No JVD. CARDIOVASCULAR: Regular rate and rhythm. Mildly bradycardic RESPIRATORY: No accessory muscle use. Clear to auscultation. Breath sounds equal bilaterally. GASTROINTESTINAL: Abdomen soft, non-tender, nondistended. Hepatic and splenic margins not palpable. MUSCULOSKELETAL: Extremities without clubbing, cyanosis, or edema. No obvious deformities. Right radial no hematoma, neurovascular intact distally NEUROLOGICAL: Awake and alert. No obvious cranial nerve deficits. Motor grossly within normal limits. Five out of 5 muscle strength in the arms and legs. Normal speech. PSYCHIATRIC: Appropriate mood and affect; insight and judgment normal. Laboratory Laboratory Tests Test 01/28/17 19:40 01/29/17 05:19 Random Glucose 475 MG/DL 280 MG/DL White Blood Count 18.4 TH/MM3 Red Blood Count 5.91 MIL/MM3 Hemoglobin 13.0 GM/DL Hematocrit 41.2 % Mean Corpuscular Volume 69.7 FL Mean Corpuscular Hemoglobin 21.9 PG Mean Corpuscular Hemoglobin Concent 31.4 % Red Cell Distribution Width 14.4 % Platelet Count 229 TH/MM3 Mean Platelet Volume 9.4 FL Neutrophils (%) (Auto) 83.4 % Lymphocytes (%) (Auto) 10.8 % Monocytes (%) (Auto) 5.5 % Eosinophils (%) (Auto) 0.0 % Basophils (%) (Auto) 0.3 % Neutrophils # (Auto) 15.4 TH/MM3 Lymphocytes # (Auto) 2.0 TH/MM3 Monocytes # (Auto) 1.0 TH/MM3 Eosinophils # (Auto) 0.0 TH/MM3 Basophils # (Auto) 0.1 TH/MM3 CBC Comment DIFF FINAL Differential Total Cells Counted 100 Neutrophils % (Manual) 77 % Band Neutrophils % 8 % Lymphocytes % 10 % Monocytes % 5 % Neutrophils # (Manual) 15.6 TH/MM3 Differential Comment FINAL DIFF MANUAL Platelet Estimate NORMAL Platelet Morphology Comment NORMAL Ovalocytes 1+ Hematology Comments Activated Partial Thromboplast Time 25.4 SEC Blood Urea Nitrogen 22 MG/DL Creatinine 1.20 MG/DL Calcium Level 9.3 MG/DL Sodium Level 138 MEQ/L Potassium Level 4.5 MEQ/L Chloride Level 106 MEQ/L Carbon Dioxide Level 21.5 MEQ/L Anion Gap 11 MEQ/L Estimat Glomerular Filtration Rate 75 ML/MIN Assessment and Plan Problem List: (1) Elevated troponin I level ICD Codes: R74.8 - Abnormal levels of other serum enzymes Status: Acute (2) Complete heart block by electrocardiogram ICD Codes: I44.2 - Atrioventricular block, complete Status: Acute (3) Blood glucose elevated ICD Codes: R73.9 - Hyperglycemia, unspecified Status: Acute Assessment and Plan 1) High degree AV block, possible AV dissociation with complete heart block at times 2) No significant CAD noted on cath Metformin on hold 3) Dr. Holguin plans for EP study today 4) CVICU for now Concern for 3rd degree HB with rates around 38-42, although overall stable 5) Leukocytosis, ?steroids for IV contrast allergy No symptoms, continue to follow Nate Rosado DO Jan 29, 2017 19:12
[2017-01-30] MEDS: INSULIN ASPART SUPPLEMENTAL SCALE SQ SCH ×3 (01:51→11:45)
[2017-01-30 03:00] VITALS: BP 119/71; PULSE 30; PULSE 39; RESP 12; TEMP 98.5; O2SAT 98
[2017-01-30] MEDS: CHLORHEXIDINE GLUCONATE 2 % 1 PACK (2 CLOTHS) TOP SCH (04:00)
[2017-01-30] MEDS: HEPARIN SODIUM - SQ 10,000 UNITS/ML VIAL SQ SCH (06:13)
--- NOTE | 2017-01-30 06:23 | HHI.CCPN ---
Subjective Remarks/Hospital Course 56 y/o man observed to have complete heart block on ECG today in private physicians office. Sent to [place] ED and transferred to [facility] CVICU where I met him on his arrival. No chest pain, SOB, syncope, light-headedness. Electrolytes acceptable range. Mag 1.4. K 3.8. Trop 0.14. ECG with variable ventricular response in the 40s. SBP 160s. Dr. Rosado has reviewed and discussed with me plan of care. No specific possible causative medications. Patient has IDDM, hypertension, anxiety. Subjective: 01/27: Afebrile. Patient up most of the night patient anxious regarding impending procedure cardiac catheter and pacemaker that he related to me. The patient is tolerating a diet. Heart rate ranges throughout the last 24 hours 41 82. The patient was noted to have a magnesium level I.6 which will be replaced today. Plan for cardiac catheterization and possible pacemaker implantation tomorrow. 01/28: still with significant bradycardia, 3rd degree HB, HR in the low 30s. [facility] plan for today and plan for EP study tomorrow. patient without complaints, ROS negative. 01/29: bradycardia persists. plan for EP study today. ROS negative. patient without complaints. 01/30: bradycardia persists, even down to high 20s overnight. patient remains asymptomatic. plan for EP study today with Dr. Holguin. ROS negative. patient without complaints. Objective Vital Signs Date Time Temp Pulse Resp B/P (MAP) Pulse Ox O2 Delivery O2 Flow Rate FiO2 01/30/17 03:00 30 01/30/17 03:00 98.5 12 119/71 (87) 98 01/28/17 21:53 21 Intake and Output 01/30/17 01/30/17 01/30/17 07:59 15:59 23:59 Intake Total 480 ml Output Total 675 ml Balance -195 ml Result Diagram: 01/29/1751801/29/17518 Imaging Last Impressions Chest X-Ray 01/25/171929 Signed Impressions: Service Date/Time: Saturday, January 25, 2017 19:42 - CONCLUSION: No evidence of acute cardiopulmonary disease. Yoan Lindquist MD CXR: Clear Objective Remarks Gen: Alert, comfortable. Head: Normal. Neck: Supple, airway clear. Lungs: Clear, no adventitious sounds. Comfortable pattern. Heart: Irreg, Irreg, bradycardia 35-37. No murmurs rubs or gallops No JVD. Abdomen: Benign, soft. Normoactive bowel sounds Extremities: Warm, well perfused. No edema no cyanosis Neuro: O X 3, alert, conversant. Follows commands, moves extremities 4. A/P Assessment and Plan Assessment: 1. Complete Heart Block, periodic atrial fibrillation with bradycardic response. 2. Hypertension. 3. DM, Type 2, poorly controlled. 4. Hyperlipidemia. Plan: - Telemetry. - Bed rest, up with assistance. - Pepcid. - Q4h SSI until better glucose control. - Atropine for sustained rate < 38 with symptoms - Hydralazine for hypertension - Hold ARB. - No AV node conduction blockers for HTN. - plan for EP study today - could transfer out of ICU after EP study. Overall impression: Warm and well perfused. Patient states he has a pulse in the 40s most of the time for many months, possibly years. continue ICU monitoring given severe bradycardia. Once EP study complete could be stable for transfer to floor. Lloyd Gaytan MD Jan 30, 2017 06:23
[2017-01-30] MEDS ORDERED: ISOPROTERENOL HCL 1 MG/5 ML AMP ONE (07:32)
[2017-01-30] MEDS ORDERED: MIDAZOLAM HCL 2 MG/2 ML VIAL ONE (07:33)
[2017-01-30] MEDS ORDERED: SODIUM CHLOR 0.9% 250 ML INJ 250 ML ONE (07:36)
[2017-01-30] MEDS ORDERED: VANCOMYCIN HCL 1000 MG VIAL ONE (07:36)
[2017-01-30] MEDS ORDERED: ceFAZolin INJ 1,000 MG VIAL ONE (07:36)
[2017-01-30] MEDS ORDERED: VANCOMYCIN 500 MG VIAL ONE (07:36)
[2017-01-30] MEDS ORDERED: LIDOCAINE HCL 2% 50 ML VIAL ONE (07:36)
[2017-01-30] MEDS ORDERED: BACITRACIN OINT 0.9 GM PKT TOP ONE (08:15)
[2017-01-30] MEDS ORDERED: oxyCODONE/ACETAMINOPHEN 5 MG/325 MG TAB PO PRN ×2 (08:15)
[2017-01-30] MEDS ORDERED: ONDANSETRON HCL 4 MG/2 ML VIAL IV PRN (08:15)
[2017-01-30] MEDS ORDERED: METOCLOPRAMIDE HCL 10 MG/2 ML VIAL IV PRN (08:15)
[2017-01-30] MEDS ORDERED: ATROPINE SULFATE 1 MG/ML VIAL IV PRN (08:15)
[2017-01-30] MEDS ORDERED: SODIUM CHLOR 0.9% 250 ML INJ 250 ML IV PRN (08:15)
[2017-01-30] MEDS ORDERED: LORazepam 2 MG/ML VIAL IV PRN (08:15)
[2017-01-30] MEDS ORDERED: LIDOCAINE HCL 1% 50 ML VIAL INFIL PRN (08:15)
[2017-01-30] MEDS: LOSARTAN 50 MG TAB PO SCH (09:00)
[2017-01-30] MEDS: FAMOTIDINE 20 MG TAB PO SCH (09:00)
[2017-01-30] MEDS: PRAVASTATIN SOD 40 MG TAB PO SCH (09:00)
[2017-01-30] MEDS: GABAPENTIN 300 MG CAP PO SCH (09:00)
[2017-01-30] MEDS: ASPIRIN 81 MG CHEW TAB CHEW SCH (09:00)
--- NOTE | 2017-01-30 17:09 | CATHPROC ---
[employer] HIS Report Study Information Study Number Admission Scheduled Start Study Start [id number] Jan 25 2017 7:49PM 01/30/2017 Jan 30 2017 7:34AM [place] Service Cardiac Pacer/ICD Admit Source Facility Department Other [facility] [address] - Crew Chief Physician and Clinical Staff Initial Yuli Aguiar Rn Case Mgr Tiny Larsen,RT(R) TECH2 Other Anesthesia, SUPPLY CHAIN PROGRAM MANAGER Recorder Dorothy Feng,RN Scrub Ramona Durbin,GROUND SOURCE HEAT PUMP TECHNICIAN TECH2 Equipment Time Block Engraver Description Size Mfg Part Number Used/Scraped [id number] 07:48 [employer] PACK, CCL CUSTOM * Used *[id number] 07:48 [employer] PACER CHAVEZ, LIMB * 2530 *[id number] Used [id number] 07:48 [employer],WARM AIR CCL * Used *[id number] 07:48 [employer] CATHETER, JSN, QUAD FR 5 Used *[id number] 07:48 [employer] CAT[employer], JSN, QUAD FR 5 Used *[id number] 07:48 [employer] CATHETER, JSN, QUAD FR 5 Used *[id number] 07:48 [employer] CATHETER, JSN, QUAD FR 5 Used *[id number] 07:48 [employer] SHEATH, EPS, FR5 FAST CATH FR 5 Used *[id number] 07:48 [employer] SHE[employer], EPS, FR5 FAST CATH FR 5 Used *[id number] 07:49 [employer] SHE[employer], EPS, FR5 FAST CATH FR 5 Used *[id number] 07:48 [employer] SHE[employer], EPS, FR6 FAST CATH FR 6 [id number] Used History: Current Medications Medication Dosage/Unit Route Frequency Last Date/Time Taken ASA LOVENOX History: Allergies Allergy Reaction Fish Containing Products Swelling potassium iodide Swelling sodium iodide Swelling iodine Swelling povidone-iodine Swelling History: Risk Factors Family History of Hypertension Dyslipidemia Previous [place] Previous Heart Failure Premature CAD Yes Yes Yes No No Prior Valve Prior PCI Prior CABG Surgery No No No Cerebrovascular Peripheral Artery Chronic Lung On Dialysis Diabetes Diabetes Therapy Disease Disease Disease No No No No Yes Oral History: Stress Tests Stress or Imaging Studies Performed No History: Other Current Smoker Method Quit Packs a Day Years Used Pack Years No Cigarettes 20 Years Ago 1 6 6 Labs Hgb (g/dl) Hct (%) Platelets (thousands) 11.60-17.00 35.00-51.00 150.00-450.00 13.0 41.2 229 Glucose (mg/dl) BUN (mg/dl) Creatinine (mg/dl) BUN:Creatinine (1:x) 74.00-106.00 7.00-18.00 0.50-1.30 10.00-20.00 280 22 1.2 18.3 Na (meq/l) K (meq/l) 136.00-145.00 3.50-5.10 138 4.5 INR (PTT:PT) 0.90-1.10 1 CPK-MB (ng/ML) 0.50-3.60 Not Drawn Medication Medication Total Dose (Bolus/Oral) Medication Total Dosage/Unit 1% XYLOCAINE 20 mL Medications (Bolus/Oral) Medication Time Given Dosage/Unit Administered By Reason 1% XYLOCAINE 01/30/2017 7:48:14 AM 20 mL Yuli Holguin 20 mL 1% XYLOCAINE given in lab by Yuli Holguin in Right Groin via Subcutaneous. Medication (Drip) Medication Time Given Dosage/Unit Concentration/Unit Diluent (ml) Solution ISUPREL 01/30/2017 7:56:34 AM 4 mcg/min 1 mg 250 NaCl .9 4 mcg/min ISUPREL given in lab by Yuli Holguin via Peripheral IV. Pump/Drip Flow = 60 ml/hr using Na Cl .9 with a concentration of 1 mg in 250 ml. Final Case Assessment Cardiovascular HR Rhythm NIBP Chest Pain 59 SB 143/84 0 Edema Present Skin color Skin None Normal Warm Dry Circulatory - Right Pulses Dorsalis Pedis 1 Scale (0,1,2,3,4,d) Circulatory - Left Pulses Dorsalis Pedis 1 Scale (0,1,2,3,4,d) Neurological State Oriented to time-place- Alert Moves all extremities person Respiration - General Respiration Rate SpO2 (%) (B/min) 18 100 Initial Case Assessment Cardiovascular HR Rhythm NIBP Chest Pain 45 SB 180/106 0 Edema Present Skin color Skin None Normal Warm Dry Circulatory - Right Pulses Dorsalis Pedis 1 Scale (0,1,2,3,4,d) Circulatory - Left Pulses Dorsalis Pedis 1 Scale (0,1,2,3,4,d) Neurological State Oriented to time-place- Alert Moves all extremities person Respiration - General Respiration Rate SpO2 (%) (B/min) 18 97 Chronological Log Time Study Chronological Log 7:15:00 Patient arrived via Bed. 7:15:00 Patient Name, D.O.B, / Armband Verified By R.N. 7:17:59 Verbal Stimulation=2 Physical Stimulation=2 Airway=2 Respiration=2 TOTAL=8. (0=absent, 1=li mited, 2=present) 7:18:14 Anesthesia at bedside. Assumes care of patient. 7:18:19 Patient has been NPO for More than 6Hrs. 7:18:27 Skin Breakdown- NON PER PATIENT 7:18:39 Disposable Defibrillator Pads Placed On Patient. 7:18:45 Carolee Prominences Protected 7:18:52 A # 20 IV was noted in the Antecubital (left). Grade = 0 7:19:04 A # 20 IV was noted in the Antecubital (left). Grade = 0 7:19:13 History and physical on the chart or being dictated. Assessment: Initial Case, HR=45 BPM, Rhythm=SB, DRWS=171/106 mmhg, Chest Pain=0, Edema=None, Color=Normal, Skin = Warm, Dry Right Pulses: Bridger Ped=1 7:19:17 Left Pulses: Bridger Ped=1 Neurological: State=Alert, Ox3, MACDONALD Respiration: Resp=18 B/min, SpO2=97 % Time Out. Correct patient, procedure, procedure equipment, site and side verified with physicia n present. Time 7:43:00 concurred by MD, individual staff and SUPPLY CHAIN PROGRAM MANAGER. Time Out #2 - Consents verified, patient in correct position, all results are labled and displa yed, safety precautions 7:43:05 taken, antibiotics administered. Time out concurred by MD, individual staff and SUPPLY CHAIN PROGRAM MANAGER in procedu re 7:44:06 Case Start 7:48:14 20 mL 1% XYLOCAINE given in lab by Yuli Holguin in Right Groin via Subcutaneous. 7:48:22 Vascular access was obtained in the Fem Vein (right). 7:48:25 Vascular access was obtained in the Fem Vein (right). 7:48:26 Vascular access was obtained in the Fem Vein (right). 7:48:26 Vascular access was obtained in the Fem Vein (right). 7:48:30 A SHEATH, EPS, FR5 FAST CATH FR 5 was advanced into the Fem Vein (right) using the Modifie d Seldinger technique. 7:49:17 A SHEATH, EPS, FR5 FAST CATH FR 5 was advanced into the Fem Vein (right) using the Modifie d Seldinger technique. 7:49:20 A SHEATH, EPS, FR5 FAST CATH FR 5 was advanced into the Fem Vein (right) using the Modifie d Seldinger technique. 7:49:23 A SHEATH, EPS, FR6 FAST CATH FR 6 was advanced into the Fem Vein (right) using the Modifie d Seldinger technique. A CATHETER, JSN, QUAD FR 5 was advanced vis Fem Vein (right) and placed in the CS. Placement w as visually 7:49:30 confirmed under fluoroscopy. A CATHETER, JSN, QUAD FR 5 was advanced vis Fem Vein (right) and placed in the HIS. Placement was visually 7:49:39 confirmed under fluoroscopy. A CATHETER, JSN, QUAD FR 5 was advanced vis Fem Vein (right) and placed in the HRA. Placement was visually 7:49:44 confirmed under fluoroscopy. A CATHETER, JSN, QUAD FR 5 was advanced vis Fem Vein (right) and placed in the RVA. Placement was visually 7:49:52 confirmed under fluoroscopy. 4 mcg/min ISUPREL given in lab by Yuli Holguin via Peripheral IV. Pump/Drip Flow = 60 ml/hr u sing NaCl .9 with a 7:56:34 concentration of 1 mg in 250 ml. 8:11:50 Catheter(s) removed without difficulty 8:12:00 Case End 8:12:15 Sheath removed; pressure applied to access site. 8:13:55 Sterile dressing applied to site 8:13:56 No case complications noted. 8:13:56 Cine recording checked. 8:13:58 Bedside Report will be given. 8:14:06 DOCU called. Spoke to ROMANA 8:16:12 Defibrillator and ground pads removed. Skin intact. Assessment: Final Case, HR=59 BPM, Rhythm=SB, CLLP=971/84 mmhg, Chest Pain=0, Edema=None, [place] r=Normal, Skin = Warm, Dry Right Pulses: Bridger Ped=1 8:16:52 Left Pulses: Bridger Ped=1 Neurological: State=Alert, Ox3, MACDONALD Respiration: Resp=18 B/min, IqM4=416 % 8:18:13 Patient moved to stretcher End Study - Contrast Media Used In Study Contrast Total Opened (mL) Total Used (mL) Total Wasted (mL) Unspecified 0 0 0 End Study - Maximum Contrast Load Max Contrast Load (mL) 485.4 End Study - Radiation Exposure Fluoro Time (minutes) 1.4 End Study - Patient Disposition Complications Transferred To Interventional Outcome No Telemetry Bed successful
--- NOTE | 2017-01-30 17:35 | PD.CARD.PN ---
Subjective Subjective Remarks Patient seen earlier No events overnight Post-EP study, doing well Objective Medications Current Medications Sodium Chloride (NS Flush) 2 ml UNSCH PRN IVF FLUSH AFTER USING IV ACCESS Last administered on 01/29/17 09:13; Start 01/25/17 at 19:30; Stop 01/30/17 at 16:27 ; Status DC Atropine Sulfate (Atropine Inj) 1 mg STK-MED ONCE .ROUTE ; Start 01/26/17 at 01: 17; Stop 01/26/17 at 01:18; Status DC Acetaminophen (Tylenol) 650 mg Q6H PRN PO FEVER >101F; Start 01/26/17 at 01:45 ; Stop 01/30/17 at 16:27; Status DC Famotidine (Pepcid) 20 mg Q12HR PO Last administered on 01/30/17 09:00; Start 01/26/17 at 09:00; Stop 01/30/17 at 16:27; Status DC Temazepam (Restoril) 15 mg HS PRN PO INSOMNIA; Start 01/26/17 at 01:45; Stop at 16:27; Status DC Miscellaneous Information 1 [id number] XX Last administered on 01/26/17 01:45; Start 01/26/17 at 01:45; Stop 01/30/17 at 16:27; Status DC Chlorhexidine Gluconate (Chlorhexidine 2% Cloth) 3 pack Taper DAILY@04 TOP Last administered on 01/30/17 04:00; Start 01/26/17 at 04:00; Stop 01/30/17 at 16:27; Status DC Chlorhexidine Gluconate (Chlorhexidine 2% Cloth) 3 pack UNSCH PRN TOP HYGIENIC CARE; Start 01/26/17 at 01:45; Stop 01/30/17 at 16:27; Status DC Dextrose (D50w (Vial) Inj) 50 ml UNSCH PRN IV HYPOGLYCEMIA-SEE COMMENTS; Start 01/26/17 at 01:45; Stop 01/30/17 at 16:27; Status DC Glucagon (Glucagon Inj) 1 mg UNSCH PRN OTHER HYPOGLYCEMIA-SEE COMMENTS; Start 01/26/17 at 01:45; Stop 01/30/17 at 16:27; Status DC Insulin Aspart (NovoLOG SUPPLEMENTAL SCALE) 1 Q4H SQ Last administered on 11:45; Start 01/26/17 at 01:45; Stop 01/30/17 at 16:27; Status DC Enoxaparin Sodium (Lovenox Inj) 120 mg Q12H SQ Last administered on 01/26/17 02:18; Start 01/26/17 at 02:00; Stop 01/26/17 at 13:54; Status DC Hydralazine HCl (Apresoline Inj) 20 mg Q2H PRN IV PUSH SBP > 160; Start at 01:45; Stop 01/30/17 at 16:27; Status DC Aspirin (Aspirin Chew) 81 mg DAILY CHEW Last administered on 01/30/17 09:00; Start 01/26/17 at 09:00; Stop 01/30/17 at 16:27; Status DC Enalaprilat (Vasotec Inj) 2.5 mg Q6H PRN IV PUSH SBP > 180; Start 01/26/17 at 02:00; Stop 01/29/17 at 13:40; Status DC Amlodipine Besylate (Norvasc) 5 mg NOW ONCE PO Last administered on 01/26/17 02:18; Start 01/26/17 at 02:15; Stop 01/26/17 at 02:16; Status DC Atropine Sulfate (Atropine Inj) 1 mg UNSCH PRN IV PUSH FOR SUSTAINED HEART RATE < 38; Start 01/26/17 at 02:15; Stop 01/30/17 at 16:27; Status DC Gabapentin (Neurontin) 300 mg BID PO Last administered on 01/30/17 09:00; Start 01/26/17 at 09:00; Stop 01/30/17 at 16:27; Status DC Pravastatin Sodium (Pravachol) 40 mg DAILY PO Last administered on 01/30/17 09 :00; Start 01/26/17 at 09:00; Stop 01/30/17 at 16:27; Status DC Metformin HCl (Glucophage) 1,000 mg BIDPC PO Last administered on 01/26/17 18: 19; Start 01/26/17 at 02:15; Stop 01/30/17 at 16:27; Status DC Magnesium Sulfate/ Dextrose 100 ml @ 100 mls/hr Q1H IV Last administered on 08:08; Start 01/26/17 at 07:00; Stop 01/26/17 at 08:59; Status DC Heparin Sodium (Porcine) (Heparin Inj) 5,000 units UNSCH PRN IV APTT LESS THAN 25; Start 01/26/17 at 20:00; Stop 01/28/17 at 10:51; Status DC Heparin Sodium (Porcine) (Heparin Inj) 2,500 units UNSCH PRN IV APTT 25 TO 39; Start 01/26/17 at 20:00; Stop 01/28/17 at 10:51; Status DC Heparin Sodium/ Dextrose 250 ml @ 0 mls/hr TITRATE IV Last administered on 01/28t 05:50; Start 01/26/17 at 14:00; Stop 01/28/17 at 10:51; Status DC Potassium Chloride 100 ml @ 50 mls/hr Q2H PRN IV For Potassium 2.8 - 3.2 mEq/L ; Start 01/27/17 at 07:45; Stop 01/30/17 at 16:27; Status DC Potassium Chloride 100 ml @ 50 mls/hr Q2H PRN IV For Potassium 2.8 - 3.2 mEq/L ; Start 01/27/17 at 07:45; Stop 01/30/17 at 16:27; Status DC Potassium Bicarb/ Potassium Chloride (K-Lyte Cl Eff) 50 meq UNSCH PRN PO For Potassium 3.3 - 3.5 mEq/L Last administered on 01/27/17t 16:26; Start 01/27/17 at 07:45; Stop 01/30/17 at 16:27; Status DC Potassium Chloride 100 ml @ 25 mls/hr UNSCH PRN IV For Potassium 3.3 - 3.5 mEq /L; Start 01/27/17 at 07:45; Stop 01/30/17 at 16:27; Status DC Potassium Chloride 100 ml @ 50 mls/hr Q2H PRN IV For Potassium 3.3 - 3.5 mEq/L ; Start 01/27/17 at 07:45; Stop 01/30/17 at 16:27; Status DC Magnesium Sulfate 4 gm/Sodium Chloride 100 ml @ 50 mls/hr UNSCH PRN IV For Magnesium 0.9 - 1.1 mg/dL; Start 01/27/17 at 07:45; Stop 01/30/17 at 16:27; Status DC Magnesium Oxide (Mag-Ox) 800 mg UNSCH PRN PO For Magnesium 1.2 - 1.6 mg/dL; Start 01/27/17 at 07:45; Stop 01/30/17 at 16:27; Status DC Magnesium Sulfate 2 gm/Sodium Chloride 100 ml @ 50 mls/hr UNSCH PRN IV For Magnesium 1.2 - 1.6 mg/dL; Start 01/27/17 at 07:45; Stop 01/30/17 at 16:27; Status DC Potassium Phosphate (K-Phos) 2,000 mg Q4H PRN PO For Phosphorus < 2.5 mg/dL; Start 01/27/17 at 07:45; Stop 01/30/17 at 16:27; Status DC Sodium Phosphate 30 mmol/Sodium Chloride 250 ml @ 42 mls/hr UNSCH PRN IV For Phosphorus < 2.5 mg/dL; Start 01/27/17 at 07:45; Stop 01/30/17 at 16:27; Status DC Potassium Phosphate (K-Phos) 2,000 mg UNSCH PRN PO/TUBE SEE LABEL COMMENTS; Start 01/27/17 at 07:45; Stop 01/30/17 at 16:27; Status DC Potassium Phosphate 30 mmol/ Sodium Chloride 260 ml @ 42 mls/hr UNSCH PRN IV SEE LABEL COMMENTS; Start 01/27/17 at 07:45; Stop 01/30/17 at 16:27; Status DC Methylprednisolone Sodium Succinate (SoluMEDROL INJ) 125 mg ONCE ONCE IV PUSH Last administered on 01/28/17 09:55; Start 01/28/17 at 09:00; Stop 01/28/17 at 09:01; Status DC Famotidine (Pepcid Inj) 20 mg ONCE ONCE IV PUSH ; Start 01/28/17 at 09:00; Stop 01/28/17 at 09:01; Status DC Diphenhydramine HCl (Benadryl Inj) 25 mg ONCE ONCE IM Last administered on 09:00; Start 01/28/17 at 09:00; Stop 01/28/17 at 09:01; Status DC Heparin Sodium/ Sodium Chloride 1,000 ml @ As Directed STK-MED ONCE .ROUTE Last administered on 01/28/17 09:55; Start 01/28/17 at 09:40; Stop 01/28/17 at 09:41; Status DC Verapamil HCl (Isoptin Inj) 5 mg STK-MED ONCE .ROUTE Last administered on 09:56; Start 01/28/17 at 09:40; Stop 01/28/17 at 09:41; Status DC Nitroglycerin 5 ml @ As Directed STK-MED ONCE .ROUTE Last administered on 09:40; Start 01/28/17 at 09:40; Stop 01/28/17 at 09:41; Status DC Heparin Sodium (Porcine) (Heparin Inj) 10,000 units STK-MED ONCE .ROUTE Last administered on 01/28/17 09:41; Start 01/28/17 at 09:41; Stop 01/28/17 at 09:42 ; Status DC Midazolam HCl (Versed Inj) 2 mg STK-MED ONCE .ROUTE Last administered on 09:41; Start 01/28/17 at 09:41; Stop 01/28/17 at 09:42; Status DC Fentanyl Citrate (fentaNYL INJ) 100 mcg STK-MED ONCE .ROUTE Last administered on 01/28/17 09:41; Start 01/28/17 at 09:41; Stop 01/28/17 at 09:42; Status DC Diphenhydramine HCl (Benadryl Inj) 50 mg STK-MED ONCE .ROUTE ; Start 01/28/17 at 09:51; Stop 01/28/17 at 09:52; Status DC Methylprednisolone Sodium Succinate (SoluMEDROL INJ) 125 mg STK-MED ONCE .ROUTE ; Start 01/28/17 at 09:51; Stop 01/28/17 at 09:52; Status DC Miscellaneous Information 1 ONCE ONCE XX ; Start 01/28/17 at 11:00; Stop at 11:18; Status DC Iohexol (OMNIPAQUE 350 INJ (Agricultural Services Director)) 50 ml STK-MED ONCE OTHER ; Start at 13:10; Stop 01/28/17 at 13:11; Status DC Amlodipine Besylate (Norvasc) 10 mg DAILY PO Last administered on 01/30/17 09: 00; Start 01/28/17 at 18:15; Stop 01/30/17 at 16:27; Status DC Losartan Potassium (Cozaar) 100 mg DAILY PO Last administered on 01/30/17t 09: 00; Start 01/29/17 at 09:00; Stop 01/30/17 at 16:27; Status DC Heparin Sodium (Porcine) (Heparin Inj) 5,000 units Q8H SQ Last administered on 01/30/17t 06:13; Start 01/29/17 at 15:00; Stop 01/30/17 at 16:27; Status DC Isoproterenol HCl (Isuprel Inj) 1 mg STK-MED ONCE .ROUTE ; Start 01/30/17 at 07: 32; Stop 01/30/17 at 07:33; Status DC Fentanyl Citrate (fentaNYL INJ) 100 mcg STK-MED ONCE .ROUTE ; Start 01/30/17 at 07:33; Stop 01/30/17 at 07:34; Status DC Midazolam HCl (Versed Inj) 2 mg STK-MED ONCE .ROUTE ; Start 01/30/17 at 07:33; Stop 01/30/17 at 07:34; Status DC Vancomycin HCl (Vancomycin Inj) 500 mg STK-MED ONCE .ROUTE ; Start 01/30/17 at 07:36; Stop 01/30/17 at 07:37; Status DC Vancomycin HCl (Vancomycin Inj) 1,000 mg STK-MED ONCE .ROUTE ; Start 01/30/17 at 07:36; Stop 01/30/17 at 07:37; Status DC Lidocaine HCl (Xylocaine 2% Inj) 50 ml STK-MED ONCE .ROUTE ; Start 01/30/17 at 07:36; Stop 01/30/17 at 07:37; Status DC Cefazolin Sodium (Ancef Inj) 2,000 mg STK-MED ONCE .ROUTE ; Start 01/30/17 at 07 :36; Stop 01/30/17 at 07:37; Status DC Sodium Chloride 250 ml @ As Directed STK-MED ONCE .ROUTE ; Start 01/30/17 at 07 :36; Stop 01/30/17 at 07:37; Status DC Oxycodone/ Acetaminophen (Percocet 5-325 Mg) 1 tab Q4H PRN PO PAIN SCALE 1 TO 4; Start 01/30/17 at 08:15; Stop 01/30/17 at 16:27; Status DC Oxycodone/ Acetaminophen (Percocet 5-325 Mg) 2 tab Q4H PRN PO PAIN SCALE 5 TO 10; Start 01/30/17 at 08:15; Stop 01/30/17 at 16:27; Status DC Lorazepam (Ativan Inj) 0.5 mg UNSCH PRN IV ANXIETY; Start 01/30/17 at 08:15; Stop 01/30/17 at 16:27; Status DC Atropine Sulfate (Atropine Inj) 0.5 mg UNSCH PRN IV VAGAL REPONSE; Start at 08:15; Stop 01/30/17 at 16:27; Status DC Sodium Chloride 250 ml @ 500 mls/hr ONCE PRN IV VAGAL REPONSE; Start 01/30/17 at 08:15; Stop 01/30/17 at 16:27; Status DC Metoclopramide HCl (Reglan Inj) 10 mg Q4H PRN IV NAUSEA; Start 01/30/17 at 08: 15; Stop 01/30/17 at 16:27; Status DC Ondansetron HCl (Zofran Inj) 4 mg Q4H PRN IV NAUSEA; Start 01/30/17 at 08:15; Stop 01/30/17 at 16:27; Status DC Lidocaine HCl (Xylocaine 1% Inj (50 ml)) 10 ml UNSCH PRN INFIL SHEATH REMOVAL; Start 01/30/17 at 08:15; Stop 01/30/17 at 16:27; Status DC Bacitracin (Bacitracin Oint Packet) 0.9 gm ONCE ONCE TOP ; Start 01/30/17 at 08 :15; Stop 01/30/17 at 08:38; Status DC Vital Signs / I&O Vital Signs Date Time Temp Pulse Resp B/P (MAP) Pulse Ox O2 Delivery O2 Flow Rate FiO2 01/30/17 09:30 98 Room Air 01/30/17 03:00 30 01/30/17 03:00 98.5 39 12 119/71 (87) 98 01/29/17 23:00 48 01/29/17 23:00 98.5 37 16 122/65 (84) 98 01/29/17 19:00 66 01/29/17 19:00 98.3 51 12 146/72 (96) 97 I/O 01/29/17 01/29/17 01/29/17 01/30/1723/17 8/23/17 06:59 14:59 22:59 06:59 14:59 22:59 Intake Total 240 ml 200 ml 480 ml Output Total 1625 ml 940 ml 675 ml Balance -1385 ml -740 ml -195 ml Intake Oral 240 ml 200 ml 480 ml IV Total 0 ml Output Urine Total 1625 ml 940 ml 675 ml # Bowel Movements 0 0 Physical Exam GENERAL: NAD, AAOx3 SKIN: Warm and dry. HEAD: Atraumatic. Normocephalic. EYES: Pupils equal and round. No scleral icterus. No injection or drainage. ENT: No nasal bleeding or discharge. Mucous membranes pink and moist. NECK: Trachea midline. No JVD. CARDIOVASCULAR: Regular rate and rhythm. Mildly bradycardic RESPIRATORY: No accessory muscle use. Clear to auscultation. Breath sounds equal bilaterally. GASTROINTESTINAL: Abdomen soft, non-tender, nondistended. Hepatic and splenic margins not palpable. MUSCULOSKELETAL: Extremities without clubbing, cyanosis, or edema. No obvious deformities. Right radial no hematoma, neurovascular intact distally NEUROLOGICAL: Awake and alert. No obvious cranial nerve deficits. Motor grossly within normal limits. Five out of 5 muscle strength in the arms and legs. Normal speech. PSYCHIATRIC: Appropriate mood and affect; insight and judgment normal. Assessment and Plan Problem List: (1) Elevated troponin I level ICD Codes: R74.8 - Abnormal levels of other serum enzymes Status: Acute (2) Complete heart block by electrocardiogram ICD Codes: I44.2 - Atrioventricular block, complete Status: Acute (3) Blood glucose elevated ICD Codes: R73.9 - Hyperglycemia, unspecified Status: Acute Assessment and Plan 1) High degree AV block, possible AV dissociation with complete heart block at times 2) No significant CAD noted on cath Metformin on hold 3) Leukocytosis secondary to steroids for IV contrast allergy No symptoms, discussed with patient, any fever/chills/symptoms follow up with PCP or come to the ER 4) Post EP study No need for PPM per Dr. Holguin Discussed with Dr. Holguin, ok for discharge Will follow up with Dr. Holguin 5) Patient aware of concern symptoms 6) Discussed with Dr. Gaytan, Hem Inspector, no further issues from his standpoint 7) Plan discharge today > 40 mins spent on discharge Nate Rosado DO Jan 30, 2017 17:35
--- NOTE | 2017-01-30 17:37 | HHI.DS ---
Discharge Summary Admission Date Jan 25, 2017 at 19:49 Discharge Date: Jan 30, 2017 Admitting Diagnosis Asymptomatic high degree AV block (1) High degree atrioventricular block Diagnosis: Principal ICD Codes: I44.39 - Other atrioventricular block (2) Elevated troponin I level Diagnosis: Principal ICD Codes: R74.8 - Abnormal levels of other serum enzymes Status: Acute (3) Blood glucose elevated Diagnosis: Secondary ICD Codes: R73.9 - Hyperglycemia, unspecified Status: Acute Brief History Presenting from PCP office due to concern for 3rd degree heart block on EKG Elevated troponin Cardiac catheterization showing no significant CAD EP study, asymptomatic high degree AV block, no PPM at this time CBC/BMP: 01/29/17 0519 01/29/17 0519 Significant Findings Laboratory Tests Test 01/27/17 18:41 01/28/17 02:12 01/28/17 19:40 01/29/17 05:19 Activated Partial Thromboplast Time 48.9 SEC (24.3-30.1) 51.3 SEC (24.3-30.1) Hemoglobin 12.0 GM/DL (13.0-17.0) Hematocrit 38.3 % (39.0-51.0) Mean Corpuscular Volume 70.3 FL (80.0-100.0) 69.7 FL (80.0-100.0) Mean Corpuscular Hemoglobin 22.0 PG (27.0-34.0) 21.9 PG (27.0-34.0) Mean Corpuscular Hemoglobin Concent 31.3 % (32.0-36.0) 31.4 % (32.0-36.0) Random Glucose 190 MG/DL (74-106) 475 MG/DL (74-106) 280 MG/DL (74-106) White Blood Count 18.4 TH/MM3 (4.0-11.0) Red Blood Count 5.91 MIL/MM3 (4.50-5.90) Neutrophils (%) (Auto) 83.4 % (16.0-70.0) Neutrophils # (Auto) 15.4 TH/MM3 (1.8-7.7) Monocytes # (Auto) 1.0 TH/MM3 (0-0.9) Neutrophils % (Manual) 77 % (16-70) Band Neutrophils % 8 % (0-6) Neutrophils # (Manual) 15.6 TH/MM3 (1.8-7.7) Ovalocytes 1+ (NORMAL) Blood Urea Nitrogen 22 MG/DL (7-18) Estimat Glomerular Filtration Rate 75 ML/MIN (>89) Pt Condition on Discharge: Good Discharge Disposition: Discharge Home Discharge Instructions DIET: Follow Instructions for: Heart Healthy Diet Activities you can perform: See Additionl Instruction Additional Activity Instructio: No lifting more than 10 lbs for 3 days Nate Rosado DO Jan 30, 2017 17:37
--- NOTE | 2017-02-06 08:42 | MA ---
cc: MERVIN CHAUHAN M.D. DATE 01/30/2017 PROCEDURE PERFORMED Electrophysiology study, CS cannulation, repeat electrophysiology study on Isuprel infusion. INDICATIONS Mr. Huratdo is a 56-year-old -[place] gentleman admitted due to a possible AV dissociation and AV block referred for electrophysiology study. The risks, the nature and the benefit of the procedure are clearly stated to him. The risks include pneumothorax, cardiac perforation, stroke and even . The patient understood and agreed to proceed. PROCEDURE After written informed consent was obtained, the patient was brought to the EP Lab where he was prepped and draped in the usual sterile fashion. Conscious sedation was initiated and maintained throughout the procedure by anesthesiologist. Once sedation verified, the right inguinal area was anesthetized with 2% Xylocaine. Using modified Seldinger technique, the right femoral vein was cannulated on four occasions and four guidewires were advanced. Over the wire, three 5 and a 6-Bangladeshi Hemaquet were advanced. Then under fluoroscopic guidance through the 5 and 6-Bangladeshi Hemaquet, four 5-Bangladeshi Ronald curved quadripolar electrophysiology catheters were advanced and positioned on the His, upper right atrium, coronary sinus and right ventricular apex. Basic interval was measured. HV was within normal limits. The patient was Wenckebaching. Atrial pacing protocol was performed. Atrial pacing protocol consists of incremental atrial pacing, as well as program stimulation with one drive train cycle length and up to one excess stimuli delivered. No tachyarrhythmia was induced. Then ventricular pacing protocol was performed. There was VA conduction. No tachyarrhythmia was induced. Then Isuprel infusion was initiated and atrial and ventricular pacing protocol was repeated again. No tachyarrhythmia was induced. Post Isuprel, no tachyarrhythmia, no significant block observed. At that point, the procedure was complete. All catheters were removed. The patient is going to be transferred to the recovery room. No incident report. The patient tolerated the procedure, blood loss minimal. 1. Electrocardiogram: At baseline, the patient in sinus rhythm. Postprocedure electrocardiogram was unchanged. 2. Basic interval: Base cycle length was around 160 milliseconds, AH was around 58 milliseconds. 3. Atrial pacing protocol: No tachyarrhythmia was induced. Wenckebach was around 600 milliseconds. 4. Ventricular pacing protocol. There is VA conduction. No tachyarrhythmia was induced. CONCLUSION 1. Negative electrophysiology study for supraventricular tachy arrhythmia. 2. No infra His disease. Patient is experiencing Wenckebach. COMMENT AND RECOMMENDATION At this point, the patient can be discharged home. No need for pacing support. I will see him as an outpatient. MD JUSTIN Olivera/SOSA /8:20 AM /8:26 AM
== END 2017-01-30 14:45 | disposition home or self-care (01) | DRG 274 ==
LOC: PHED 18:58 → PHEDA 19:49 → HCVR 01-26 01:01 → HCIS 01-30 08:26
PROVIDERS: ADMIT Nuclear Medicine Nuclear Cardiology; ATTEND Nuclear Medicine Nuclear Cardiology
PROC: B2111ZZ Fluoroscopy of Multiple Coronary Arteries using Low Osmolar Contrast (ICD-10-PCS; 2017-01-28)
PROC: 4A023N7 Measurement of Cardiac Sampling and Pressure, Left Heart, Percutaneous Approach (ICD-10-PCS; principal; 2017-01-28 09:45)
PROC: 4A023FZ Measurement of Cardiac Rhythm, Percutaneous Approach (ICD-10-PCS; 2017-01-30)
PROC: 4A0234Z Measurement of Cardiac Electrical Activity, Percutaneous Approach (ICD-10-PCS; 2017-01-30)
DX: I44.2 Atrioventricular block, complete (principal); E11.65 Type 2 diabetes mellitus with hyperglycemia; I10 Essential (primary) hypertension; R00.1 Bradycardia, unspecified; E78.00 Pure hypercholesterolemia, unspecified; F41.9 Anxiety disorder, unspecified; R74.8 Abnormal levels of other serum enzymes; Z79.4 Long term (current) use of insulin; I25.10 Atherosclerotic heart disease of native coronary artery without angina pectoris; E83.42 Hypomagnesemia; E66.9 Obesity, unspecified; Z91.041 Radiographic dye allergy status
CPT/HCPCS: 71020; 76937; 80048; 80053; 82550; 82552; 82947; 82948; 83735; 84100; 84484; 85007; 85025; 85027; 85610; 85730; 87641; 93005; 93306; 93454; 93620; 93623; C1730; C1769; C1893; J0461; J0690; J1200; J1644; J1650; J1815; J2250; J2930; J3010; J3370; J3475; J7050; Q9967

== ENCOUNTER 2017-03-09 18:58 | Emergency (ER) | payer MEDICARE, OTHER ==
[~2017-03-09 18:58] MED LIST changes: -CLEO300C2 PO; -NORC5TAB PO
[2017-03-09 19:16] VITALS: BP 212/94; PULSE 64; RESP 17; TEMP 98.8; O2SAT 98
[2017-03-09] MEDS ORDERED: SODIUM CHLORIDE 0.9% FLUSH 10 ML FLUSH IV FLUSH PRN (20:00)
[2017-03-09] MEDS ORDERED: ONDANSETRON HCL 4 MG/2 ML VIAL IVP ONE (20:00)
[2017-03-09] MEDS ORDERED: SODIUM CHLOR 0.9% 1000 ML INJ 1,000 ML IV SCH (20:00)
[2017-03-09] MEDS ORDERED: MORPHINE SULFATE 8 MG/ML INJ IV PUSH ONE (20:00)
[2017-03-09 20:34] LABS: AUTOMATED NEUTROPHIL # 5.8 TH/MM3 (1.8-7.7); BASOPHIL # 0.1 TH/MM3 (0-0.2); BASOPHIL % 1.6 % (0.0-2.0); BLOOD, URINE LARGE (NEG); EOSINOPHIL # 0.3 TH/MM3 (0-0.4); EOSINOPHIL % 3.6 % (0.0-4.0); GLUCOSE,URINE 1000 OR GREATER mg/dL (NEG); HEMATOCRIT 39.7 % (39.0-51.0); KETONE, URINE NEG (NEG); LYMPH % 23.4 % (9.0-44.0); LYMPHOCYTE # 2.1 TH/MM3 (1.0-4.8); MEAN CELL VOLUME 70.3 FL (80.0-100.0); MEAN CORPUSCULAR HEMOGLOBIN 22.3 PG (27.0-34.0); MEAN CORPUSCULAR HGB CONC 31.7 % (32.0-36.0); MONO % 7.4 % (0.0-8.0); NITRITE,URINE NEG (NEG); PLATELET COUNT 274 TH/MM3 (150-450); RED BLOOD COUNT 5.65 MIL/MM3 (4.50-5.90); RED CELL DISTRIBUTION WIDTH 13.5 % (11.6-17.2); WHITE BLOOD COUNT 8.9 TH/MM3 (4.0-11.0)
[2017-03-09 20:36] LABS: HEMO FLAGS AUTO DIFF
[2017-03-09 20:43] LABS: CHLORIDE 103 MEQ/L (98-107); POTASSIUM 3.9 MEQ/L (3.5-5.1); SODIUM (NA) 137 MEQ/L (136-145)
[2017-03-09 20:44] LABS: URINE COLOR YELLOW (YELLW/STRAW); WBC, URINE 0-2 /hpf (0-5)
[2017-03-09 20:45] LABS: COMMENT (UR) CULT NOT INDICATED; CULTURE IF INDICATED CULT NOT INDICATED; SQUAMOUS EPITHELIAL CELL URINE 0-5 /hpf (0-5)
[2017-03-09 20:47] LABS: ANION GAP 7 MEQ/L (5-15); BICARBONATE 27.1 MEQ/L (21.0-32.0); BLOOD UREA NITROGEN 21 MG/DL (7-18)
[2017-03-09 20:50] LABS: ALT (GPT) 26 U/L (12-78); AST (GOT) 23 U/L (15-37); GLOMERULAR FILTRATION RATE 75 ML/MIN (>89)
[2017-03-09 20:51] LABS: TOTAL BILIRUBIN ADULT 0.4 MG/DL (0.2-1.0)
[2017-03-09 20:53] LABS: ALKALINE PHOSPHATASE 93 U/L (45-117)
[2017-03-09 20:54] LABS: PLATELET ESTIMATE SMEAR NORMAL (NORMAL); PLATELET MORPHOLOGY NORMAL (NORMAL); SCAN/DIFF AUTO DIFF CONFIRMED
--- NOTE | 2017-03-09 20:54 | PD ---
HPI Chief Complaint: GI Complaint Time Seen by Provider: 19:19 Travel History International Travel<30 days: No Contact w/Intl Traveler<30days: No Traveled to known affect area: No History of Present Illness HPI There is a 56-year-old male presents emergency Department with left lower quadrant abdominal pain nausea vomiting and diarrhea. Patient states he feels like to go move his bowels. He states the pain is intense, constant, present for the past few hours and gradually worsening. PFSH Past Medical History Arthritis: Yes Anxiety: Yes Cardiac Catheterization: Yes Cardiovascular Problems: Yes High Cholesterol: Yes Chest Pain: Yes Coronary Artery Disease: No (HX OF ANGINA) Diabetes: Yes Patient Takes Glucophage: No Diminished Hearing: No Endocrine: Yes Gastrointestinal Disorders: No Genitourinary: No Hypertension: Yes Implanted Vascular Access Dvce: Yes Musculoskeletal: Yes Neurologic: No Psychiatric: Yes Respiratory: No Pancreatitis: Yes Tetanus Vaccination: < 5 Years Influenza Vaccination: Yes Past Surgical History Body Medical Devices: WIRES TO BOTH KNEES Other Surgery: Yes (RIGHT HAND 4TH DIGIT) Social History Alcohol Use: No Tobacco Use: No Substance Use: No Allergies-Medications (Allergen,Severity, Reaction): Coded Allergies: Fish Containing Products (Verified Allergy, Severe, Swelling, 03/09/17) iodine (Verified Allergy, Severe, Swelling, 03/09/17) potassium iodide (Verified Allergy, Severe, Swelling, 03/09/17) povidone-iodine (Verified Allergy, Severe, Swelling, 03/09/17) sodium iodide (Verified Allergy, Severe, Swelling, 03/09/17) sodium iodide (Verified Allergy, Severe, Swelling, 03/09/17) Reported Meds & Prescriptions Reported Meds & Active Scripts Active [place] (Hydrocodone-Acetaminophen) 5-325 mg Tab 1 Tab PO Q6H PRN 10 Days Zofran (Ondansetron HCl) 4 Mg Tab 4 Mg PO Q6HR PRN Flomax (Tamsulosin HCl) 0.4 Mg Cap 0.4 Mg PO HS Reported Losartan (Losartan Potassium) 100 Mg Tab 100 Mg PO DAILY Aspirin 325 Mg Tab 325 Mg PO DAILY Novolin N Inj (Insulin Human NPH) 1,000 Unit/10 Ml Vial 40 Units SQ BID Gabapentin 300 Mg Cap 300 Mg PO BID Amlodipine (Amlodipine Besylate) 10 Mg Tab 10 Mg PO DAILY Lovastatin 40 Mg Tab 40 Mg PO DAILY Metformin (Metformin HCl) 1,000 Mg Tab 1,000 Mg PO BIDPC With meals Review of Systems Except as stated in HPI: all other systems reviewed are Neg Physical Exam Narrative GENERAL: Well-developed well-nourished crouching on the side of the stretcher appears uncomfortable. SKIN: Focused skin assessment warm/dry. HEAD: Atraumatic. Normocephalic. EYES: Pupils equal and round. No scleral icterus. No injection or drainage. ENT: No nasal bleeding or discharge. Mucous membranes pink and moist. NECK: Trachea midline. No JVD. CARDIOVASCULAR: Regular rate and rhythm. No murmur appreciated. RESPIRATORY: No accessory muscle use. Clear to auscultation. Breath sounds equal bilaterally. GASTROINTESTINAL: Abdomen soft, non-tender, nondistended. Hepatic and splenic margins not palpable. No CVA tenderness no rebound no percussive tenderness. MUSCULOSKELETAL: No obvious deformities. No clubbing. No cyanosis. No edema. NEUROLOGICAL: Awake and alert. No obvious cranial nerve deficits. Motor grossly within normal limits. Normal speech. PSYCHIATRIC: Appropriate mood and affect; insight and judgment normal. Data Data Last Documented VS Vital Signs Date Time Temp Pulse Resp B/P (MAP) Pulse Ox O2 Delivery O2 Flow Rate FiO2 03/09/17 22:20 98.4 45 15 153/72 (99) 97 03/09/17 21:02 Room Air Orders Orders Complete Blood Count With Diff (03/09/17 20:00) Comprehensive Metabolic Panel (03/09/17 20:00) Lipase (03/09/17 20:00) Lactic Acid (03/09/17 20:00) Urinalysis - C+S If Indicated (03/09/17 20:00) Ct Abd/Pel W/O Iv Contrast (03/09/17 20:00) Iv Access Insert/Monitor (03/09/17 20:00) Ecg Monitoring (03/09/17 20:00) Oximetry (03/09/17 20:00) Ondansetron Inj (Zofran Inj) (03/09/17 20:00) Sodium Chlor 0.9% 1000 Ml Inj (Ns 1000 M (03/09/17 20:00) Sodium Chloride 0.9% Flush (Ns Flush) (03/09/17 20:00) Electrocardiogram (03/09/17 20:00) Morphine Inj (Morphine Inj) (03/09/17 20:00) Labs Laboratory Tests Test 03/09/17 20:15 White Blood Count 8.9 TH/MM3 Red Blood Count 5.65 MIL/MM3 Hemoglobin 12.6 GM/DL Hematocrit 39.7 % Mean Corpuscular Volume 70.3 FL Mean Corpuscular Hemoglobin 22.3 PG Mean Corpuscular Hemoglobin Concent 31.7 % Red Cell Distribution Width 13.5 % Platelet Count 274 TH/MM3 Mean Platelet Volume 9.7 FL Neutrophils (%) (Auto) 64.0 % Lymphocytes (%) (Auto) 23.4 % Monocytes (%) (Auto) 7.4 % Eosinophils (%) (Auto) 3.6 % Basophils (%) (Auto) 1.6 % Neutrophils # (Auto) 5.8 TH/MM3 Lymphocytes # (Auto) 2.1 TH/MM3 Monocytes # (Auto) 0.7 TH/MM3 Eosinophils # (Auto) 0.3 TH/MM3 Basophils # (Auto) 0.1 TH/MM3 CBC Comment AUTO DIFF Differential Comment AUTO DIFF CONFIRMED Platelet Estimate NORMAL Platelet Morphology Comment NORMAL Urine Color YELLOW Urine Turbidity CLEAR Urine pH 6.0 Urine Specific [place] 1.029 Urine Protein TRACE mg/dL Urine Glucose (UA) 1000 OR GREATER mg/dL Urine Ketones NEG mg/dL Urine Occult Blood LARGE Urine Nitrite NEG Urine Bilirubin NEG Urine Leukocyte Esterase NEG Urine RBC 25-49 /hpf Urine WBC 0-2 /hpf Urine Squamous Epithelial Cells 0-5 /hpf Urine Bacteria NONE /hpf Microscopic Urinalysis Comment CULT NOT INDICATED Blood Urea Nitrogen 21 MG/DL Creatinine 1.20 MG/DL Random Glucose 300 MG/DL Total Protein 8.2 GM/DL Albumin 3.9 GM/DL Calcium Level 9.0 MG/DL Alkaline Phosphatase 93 U/L Aspartate Amino Transf (AST/SGOT) 23 U/L Alanine Aminotransferase (ALT/SGPT) 26 U/L Total Bilirubin 0.4 MG/DL Sodium Level 137 MEQ/L Potassium Level 3.9 MEQ/L Chloride Level 103 MEQ/L Carbon Dioxide Level 27.1 MEQ/L Anion Gap 7 MEQ/L Estimat Glomerular Filtration Rate 75 ML/MIN Lactic Acid Level 1.6 mmol/L Lipase 104 U/L [facility] Medical Decision Making Medical Screen Exam Complete: Yes Emergency Medical Condition: Yes Differential Diagnosis Diverticulitis, kidney stone, acute abdomen unlikely. Narrative Course Patient roomed emerged permit, given morphine and Zofran, urinalysis does show significant hematuria suggesting that kidney stone is the more likely diagnosis. CAT scan was performed which showed a 2 mm completely obstructing left-sided UVJ stone. This certainly would explain his symptoms.. Nephric fat stranding. Patient on revisit states his pain went from a 10 out of 10 down to 2 out of 10 and he would like to go home. He is planning on flying out of the country next week. We no urinary tract infection creatinine normal the patient was discussed with Dr. Akhil moss and can follow up Saturday or Saturday in 2- 3 days with his partner Dr. Mendez. Discussed with the patient symptomatic management, risk benefits competitions and alternatives of Flomax was discussed. Patient stable for discharge. Diagnosis Primary Impression: Kidney stone Referrals: David Mendez DO Med/Other Pt SpecificInfo: Prescription(s) given Scripts Hydrocodone-Acetaminophen ([place]) 5-325 mg Tab 1 TAB PO Q6H Y for PAIN for 10 Days, #20 TAB 0 Refills Prov: Matias Kamara MD 03/09/17 Ondansetron (Zofran) 4 Mg Tab 4 MG PO Q6HR Y for NAUSEA OR VOMITING, #20 TAB 0 Refills Prov: Matias Kamraa MD 03/09/17 Tamsulosin (Flomax) 0.4 Mg Cap 0.4 MG PO HS for Manage Prostate Problems, #30 CAP 0 Refills Prov: Matias Kamara MD 03/09/17 Disposition: 01 DISCHARGE HOME Condition: Stable Matias Kamara MD Mar 09, 2017 20:54
[2017-03-09 21:02] VITALS: BP 157/80; PULSE 55; RESP 14; O2SAT 96
--- NOTE | 2017-03-09 21:09 | RADRPT ---
EXAM DATE/TIME: 03/09/2017 20:15 [place] COMPARISON: No previous studies available for comparison. INDICATIONS : Abdominal pain for 3 hours ORAL CONTRAST: No oral contrast ingested. RADIATION DOSE: 25.01 CTDIvol (mGy) MEDICAL HISTORY : Hypertension. Pancreatitis. Diabetes mellitus type 2. SURGICAL HISTORY : None. ENCOUNTER: Initial ACUITY: 1 day PAIN SCALE: 10/10 LOCATION: Bilateral lower quadrant abdominal TECHNIQUE: Volumetric scanning of the abdomen and pelvis was performed. Using automated exposure control and ad justment of the mA and/or kV according to patient size, radiation dose was kept as low as reasonably achievable to obtain optimal diagnostic quality images. DICOM format image data is available electro nically for review and comparison. FINDINGS: LOWER LUNGS: The visualized lower lungs are clear. LIVER: Homogeneous density without lesion. There is no dilation of the biliary tree. No calcified gallston es. SPLEEN: Normal size without lesion. PANCREAS: Within normal limits. KIDNEYS: The right kidney has a normal appearance. The left kidney is abnormal in appearance with perinephric stranding and mild hydronephrosis. The left ureter is dilated all the way down to the ureterovesica l junction where there is a 2 mm stone causing obstruction. No additional calcified stones in the co llecting system of the left kidney. ADRENAL GLANDS: Within normal limits. VASCULAR: There is no aortic aneurysm. BOWEL/MESENTERY: No dilated loops of small or large bowel. No evidence of free fluid. ABDOMINAL WALL: Within normal limits. RETROPERITONEUM: There is no lymphadenopathy. BLADDER: Nondistended. No calcifications within the lumen. REPRODUCTIVE: Within normal limits. INGUINAL: There is no lymphadenopathy or hernia. MUSCULOSKELETAL: Within normal limits for patient age. CONCLUSION: Obstructive uropathy on the left side caused by a 2 mm calcified stone in the distal left ureter. Mo derate hydronephrosis and perinephric fat stranding. No additional calcified stones in the collectin g system the left kidney. Andrea Talbot MD on March 09, 2017 at 21:04 Board Certified Radiologist. This report was verified electronically.
[2017-03-09] MEDS ORDERED: NORC5TAB PO (21:51)
[2017-03-09] MEDS ORDERED: ZOFR4TAB PO (21:51)
[2017-03-09] MEDS ORDERED: TAMS5CAP PO (21:51)
[2017-03-09 22:20] VITALS: BP 153/72; TEMP 98.4
--- NOTE | 2017-03-09 22:41 | EKG ---
Date Performed: 03/09/2017 Time Performed: 20:40:56 PTAGE: 56 years EKG: Sinus rhythm WITH FIRST DEGREE AV BLOCK WITH OCCASIONAL W[place]KEBACH PHENOMENA BORDERLINE LEFT AXIS DEVIATION NONSP ECIFIC ST & T-WAVE ABNORMALITY ABNORMAL RHYTHM ECG PREVIOUS TRACING : 01/26/2017 05.42 No significant change from previous tracing noted. DOCTOR: Nikolai Cody Interpretating Date/Time 03/09/2017 22:41:29
== END 2017-03-09 22:29 | disposition home or self-care (01) ==
LOC: PHED 18:58
DX: N20.0 Calculus of kidney (principal); R11.2 Nausea with vomiting, unspecified; R19.7 Diarrhea, unspecified; R94.31 Abnormal electrocardiogram [ECG] [EKG]; E11.9 Type 2 diabetes mellitus without complications; I10 Essential (primary) hypertension; E78.00 Pure hypercholesterolemia, unspecified; Z79.4 Long term (current) use of insulin; Z87.39 Personal history of other diseases of the musculoskeletal system and connective tissue; Z86.59 Personal history of other mental and behavioral disorders; Z86.79 Personal history of other diseases of the circulatory system; Z87.19 Personal history of other diseases of the digestive system
CPT/HCPCS: 74176; 80053; 81001; 83605; 83690; 85025; 93005; 96361; 96374; 96375; 99285; J2270; J2405; J7030